=== PATIENT | male | born 1945 | race Caucasian/White ===

== ENCOUNTER 2016-05-21 09:43 | Outpatient (CLI) | payer MEDICARE | END 2016-05-21 09:44 | disposition home or self-care (01) | DX: R73.01 Impaired fasting glucose (principal) ==

== ENCOUNTER 2016-11-28 12:31 | Outpatient (CLI) | payer MEDICARE ==
--- NOTE | 2016-11-29 10:01 | CT Report ---
SINUS CT: 11/28/2016 HISTORY: Chronic rhinosinusitis and congestion. TECHNIQUE: Axial images of the sinuses with sagittal and coronal reconstructions. In accordance with CT protocol optimization, one or more of the following dose reduction techniques were utilized for this exam: automated exposure control, adjustment of mA and/or KV based on patient size, or use of iterative reconstructive technique. COMPARISON: 02/16/2011 FINDINGS: C1-2 relationship and temporomandibular joint alignments anatomic. Minimal lobulated membrane thickening inferior maxillary and left frontal sinuses. Remaining paranasal sinuses are clear. Nasal cavity normally aerated. Minimal nasal septal deviation to the left. Nasopharyngeal soft tissues not enlarged. Normally aerated mastoid air cells and middle ear cavities. Orbital structures symmetric and unremarkable. IMPRESSION: ESSENTIALLY NEGATIVE SINUS CT. JOB #: [id number] EXT JOB #: [id number] MTDSabina
== END 2016-11-28 12:32 | disposition home or self-care (01) ==
LOC: DI 12:31
PROVIDERS: ATTEND Family Medicine
DX: J32.9 Chronic sinusitis, unspecified (principal)
CPT/HCPCS: 70486

== ENCOUNTER 2017-01-01 08:41 | Day surgery (SDC) | payer MEDICARE ==
[2017-01-01] MEDS ORDERED: LACTATED RINGERS 1,000 ML IV ONE ×2 (09:30→09:56)
[2017-01-01] MEDS ORDERED: MIDAZOLAM 2 MG/2 ML VIAL IVP ONE (09:59)
[2017-01-01] MEDS ORDERED: GLUCAGON 1 MG/ML VIAL IM ONE (09:59)
[2017-01-01] MEDS ORDERED: fentaNYL 100 MCG/2 ML VIAL IVP ONE (09:59)
[2017-01-01 11:16] VITALS: BP 116/70
== END 2017-01-01 08:42 | disposition home or self-care (01) ==
LOC: SDS 08:41
PROVIDERS: ATTEND Surgery
PROC: 0DJD8ZZ Inspection of Lower Intestinal Tract, Via Natural or Artificial Opening Endoscopic (ICD-10-PCS; principal; 2017-01-01 09:45)
DX: Z12.11 Encounter for screening for malignant neoplasm of colon (principal); Z79.82 Long term (current) use of aspirin; Z87.891 Personal history of nicotine dependence
CPT/HCPCS: G0121; J7120

== ENCOUNTER 2017-01-24 12:29 | Day surgery (SDC) | payer MEDICARE ==
[~2017-01-24 12:29] MED LIST: ceFAZolin 2 GM/50 ML 2 GM/50 ML BAG IV ONE
[2017-01-24] MEDS ORDERED: LACTATED RINGERS 1,000 ML IV ONE ×3 (13:27→16:16)
[2017-01-24] MEDS ORDERED: ROPIVACAINE 0.5% PF 20 ML AMPULE EP ONE (14:00)
[2017-01-24] MEDS ORDERED: LIDOCAINE-MPF 2% 5 ML VIAL IM ONE (14:00)
[2017-01-24] MEDS ORDERED: DEXAMETHASONE 4 MG/ML VIAL IVP ONE (14:00)
[2017-01-24] MEDS ORDERED: fentaNYL 100 MCG/2 ML VIAL IVP ONE (14:00)
[2017-01-24] MEDS ORDERED: ACETAMINOPHEN 1,000 MG/100 ML 100 ML IV ONE ×2 (14:00→16:39)
[2017-01-24] MEDS ORDERED: MIDAZOLAM 2 MG/2 ML VIAL IVP ONE (14:00)
[2017-01-24] MEDS ORDERED: ONDANSETRON 4 MG/2 ML VIAL IVP ONE (14:00)
[2017-01-24] MEDS ORDERED: PROPOFOL 200 MG/20 ML VIAL IVP ONE (14:00)
[2017-01-24] MEDS: HYDROmorphone 1 MG/ML SYRINGE ONE ×2 (15:25→15:39)
[2017-01-24] MEDS ORDERED: KETOROLAC 15 MG/ML VIAL ONE (15:28)
--- NOTE | 2017-01-24 15:40 | OPERATIVE REPORT ---
Operative Report - General Procedure Date: 01/24/17 Planned Procedure: Open repair of Right Achilles tendon Pre-Op Diagnosis: Right Achilles Tendon Rupture Procedure Performed: OPen repair of right achilles tendon Post Op Diagnosis: same - Procedure Note Primary Surgeon: babita Secondary Surgeon: MERRITT Anesthesia Provider: ILEANA Anesthesia Technique: General LMA, Regional block Estimated Blood Loss (mL): 5 Complications: NONE
[2017-01-24] MEDS ORDERED: HYDROmorphone 1 MG/ML SYRINGE ONE ×2 (15:43→16:01)
[2017-01-24] MEDS ORDERED: oxyCOD/ACETAMIN 5 MG/325 MG TABLET PO ONE ×2 (16:24→19:17)
[2017-01-24 18:52] VITALS: BP 125/55
[2017-01-24] MEDS ORDERED: ONDANSETRON 4 MG/2 ML VIAL ONE (19:04)
[2017-01-24] MEDS ORDERED: TERAZOSIN 5 MG CAPSULE PO SCH (20:00)
[2017-01-24] MEDS: oxyCOD/ACETAMIN 5 MG/325 MG TABLET PO PRN (23:21)
[2017-01-25] MEDS ORDERED: ONDANSETRON 4 MG/2 ML VIAL IVP PRN (01:29)
[2017-01-25] MEDS: oxyCOD/ACETAMIN 5 MG/325 MG TABLET PO PRN (05:58)
--- NOTE | 2017-01-25 07:09 | OPERATIVE REPORT ---
DATE OF SURGERY: 01/24/2017 00:00:00 SURGEON: Tyler Dutta MD. COMPUTATIONAL THEORY SCIENTIST: None. ANESTHESIA: [place]. ANESTHESIA TYPE: General, LMA with preoperative popliteal block. PREOPERATIVE DIAGNOSIS: Right Achilles tendon rupture. POSTOPERATIVE DIAGNOSIS: Right Achilles tendon rupture. PROCEDURE PERFORMED: Open repair of right Achilles tendon. ESTIMATED BLOOD LOSS: 5 mL. TOURNIQUET TIME: 54 minutes at 350 mmHg. IMPLANTS: None. INDICATIONS FOR SURGERY: This man has had chronic Achilles tendinitis for about 3 months. He had a sudden strain and ruptured it a few days ago. DESCRIPTION OF PROCEDURE: The patient was brought into the operating room and placed under adequate general anesthesia. A popliteal block had been administered by the furniture duster preoperatively. The right lower extremity was prepped and sterilely draped in the usual fashion. A timeout was held to identify the patient, site and procedure. The patient was supine. He was placed into a figure 4 position, which was a little bit difficult to maintain. A posterior and slightly medial incision was created. The usual longitudinal incision line was prepared with a marking pen. However, only 2/3 of this incision were used. A central area about 1-1/2 inches was surrounded by 1-1/2 inch incision on either side. This allowed good access to the broken tendon ends. Skin was cut sharply. There was no particular bleeding. The sheath was encountered and divided longitudinally. In the upper wound, a fairly ragged end of the tendon was uncovered. There was some fatty degeneration, which was removed. The wound was irrigated. A core locking suture was created, although it tended to rest to the superficial part of the tendon. This was #2 FiberWire. It was possible to introduce the digit and feel an intact plantaris tendon. The distal wound was opened in a similar technique. It was possible to flex the ankle and deliver the proximal end of the distal segment up into the wound. Again, this was degenerated in several areas, which was removed as much as possible. Some of the tendon end was freshened with a scalpel. This was also done proximally. The #2 FiberWire suture was placed in a similar locking technique. Consideration was given as to which way to go to tie the sutures. It was fairly easy to see that extreme plantar flexion of the ankle brought the proximal end of the distal tendon up almost to the proximal wound. It was not possible to deliver the distal end of the proximal segment down as low as the lower incision. Therefore, decision was easily made to pass the limbs of the suture from the distal segment up through the tunnel of intact sheath to the proximal wound. The knee was flexed and the ankle was flexed and the sutures were tied. Corresponding suture tails from each suture were then tied together under some tension. The repair was checked with the ankle being flexed and extended as far as neutral. The proximal tendon could be seen flowing freely back and forth and the tendon repair area was really not seen, as it was truly in the tunnel. Same was true distally. The wound was irrigated throughout with normal saline. The wound was irrigated at the end with normal saline. The sheath was reapproximated with 3-0 PDS simple interrupted sutures. The outer wound was closed with some 3-0 PDS subcutaneous sutures. The skin was closed with a running 3-0 Prolene subcuticular stitch reinforced with Steri-Strips. The distal wound was treated in the same way. A bulky bandage was then placed on the foot, ankle and leg. The patient was then awakened, extubated and taken to the recovery room in good condition having tolerated the procedure well. POSTOPERATIVE PLAN. Discharge to home Follow-up in 5-6 days for dressing change -- try to maintain steri-strips in place, replace if necessary. Place into same type of soft bulky dressing. 3-4 rolls of 6 inch cast padding followed by 4-6 inch COBAN to stabilize. Encourage to davila very gentle active ankle extension motion. Does not have to reach neutral. Patient to continue [id number] with crutches or walker Follow-up with me in 10-12 days for suture removal and possible advance in activity. JOB #: [id number] EXT JOB #:[id number] RAUDEL
[2017-01-25] MEDS ORDERED: SODIUM CHLORIDE FLUSH 0.9% 10 ML SYRINGE IVP ONE (09:47)
== END 2017-01-25 11:15 | disposition home or self-care (01) ==
LOC: SDS 12:29 → OBS 15:15 → SDS 01-25 11:15
PROVIDERS: ATTEND Orthopaedic Surgery
PROC: 0LQN0ZZ Repair Right Lower Leg Tendon, Open Approach (ICD-10-PCS; principal; 2017-01-25)
DX: S86.011A Strain of right Achilles tendon, initial encounter (principal)
CPT/HCPCS: 27650; A9270; J0131; J0690; J1170; J7120

== ENCOUNTER 2017-03-28 12:35 | Outpatient (CLI) | payer MEDICARE ==
--- NOTE | 2017-03-28 15:26 | MRI Preliminary Report ---
Exam: MRI ANKLE RT W/O IMPRESSION: 1. Deep partial-thickness intrasubstance tear of the Achilles tendon at the surgical site. This invol ves a region measuring 2.5 cm in length. 2. Sequelae of old sprains of the lateral ligamentous structures. 3. Minimal tibiotalar and subtalar joint effusions. 4. Mild to moderate degenerative changes in the midfoot. 5. Mild plantar fasciopathy. [facility] MUSCULOSKELETAL RADIOLOGY SECTION SITE ID: [id number]
--- NOTE | 2017-03-28 17:41 | MRI Report ---
EXAM: RIGHT ANKLE/HINDFOOT MRI WITHOUT CONTRAST EXAM DATE: 03/28/2017 01:39 PM. CLINICAL HISTORY: Ankle pain chronic for years with Achilles tendon surgery 9 weeks ago. COMPARISON: MRI 01/04/2012 and radiographs 12/12/2016. TECHNIQUE: Multiplanar, multisequence T1-weighted and fluid-sensitive sequences of the ankle/hindfoot without contrast. Other: None. FINDINGS: Bones: No fracture or bone lesion. Mild bone marrow edema and osteophytes in the mid foot, most promi nent at the second and third tarsometatarsal joints. Os trigonum noted with mild bone marrow edema in the ossific fragment and to a lesser extent adjacent talus. Articular Cartilage: Diffuse shallow partial-thickness loss at the tibiotalar joint. Deep partial to full-thickness cartilage loss in the midfoot, most prominent at the second and third tarsometatarsal joints. Ligaments: Mild thickening at the intact anterior and posterior tibiofibular, talofibular, and calcan eofibular ligaments. The deep and superficial deltoid and spring ligaments are intact. Anterior Tendons: The tibialis anterior, extensor hallucis longus, and extensor digitorum longus tend ons are unremarkable. Medial Tendons: The tibialis posterior, flexor digitorum longus, and flexor hallucis longus tendons a re unremarkable. Trace excess fluid in the tendon sheaths. Lateral Tendons: Peroneus longus tendon is normal in morphology. Mildly flattened appearance of the P roteus brevis tendon at the fibular tip. No gross fluid-filled tear. Trace excess fluid in the tendon sheath. Achilles Tendon: Foci of susceptibility artifact present in the proximal aspect of the tendon. Severe tendon thickening present at this site. Heterogeneous fluid present in the central aspect of the ten don fibers at this site involving a region measuring 1.1 x 1.5 x 2.5 cm. This is located 6 cm proxima l to the insertion. Musculature: No fatty atrophy. Minimal edema partially visualized in the gastrocnemius muscles. Other: Mental tibiotalar and subtalar joint effusions. The contents of the sinus tarsi and tarsal andrade fatimah are unremarkable. Mild thickening at the central band of the plantar fascia. Mild subcutaneous ed sherif over the medial and lateral aspects of the hindfoot. IMPRESSION: 1. Deep partial-thickness intrasubstance tear of the Achilles tendon at the surgical site. This invol ves a region measuring 2.5 cm in length. 2. Sequelae of old sprains at the lateral ligamentous structures. 3. Minimal tibiotalar and subtalar joint effusions. 4. Mild to moderate degenerative changes in the midfoot. 5. Mild plantar fasciopathy. [facility] MUSCULOSKELETAL RADIOLOGY SECTION Referring Provider Line: [phone] SITE ID: [id number]
== END 2017-03-28 12:36 | disposition home or self-care (01) ==
LOC: DI 12:35
PROVIDERS: ATTEND Orthopaedic Surgery
DX: Z48.89 Encounter for other specified surgical aftercare (principal); S86.011A Strain of right Achilles tendon, initial encounter; M25.471 Effusion, right ankle; M19.071 Primary osteoarthritis, right ankle and foot

== ENCOUNTER 2018-04-30 09:27 | Outpatient (CLI) | payer MEDICARE ==
[2018-04-30 12:56] LABS: BASOPHILS % (AUTO) 0.7 %; EOSINOPHILS # (AUTO) 0.1 10^3/uL (0.0-0.7); EOSINOPHILS % (AUTO) 1.8 %; HGB - HEMOGLOBIN 14.7 g/dL (14.0-18.0); LYMPHOCYTES # (AUTO) 1.2 10^3/uL (1.5-3.5); LYMPHOCYTES % (AUTO) 32.8 %; MEAN CORPUSCULAR HEMOGLOBIN 30.3 pg (27.0-31.0); MEAN CORPUSCULAR HGB CONC 35.3 g/dL (32.0-36.0); MEAN PLATELET VOLUME 8.9 fL (7.4-11.4); MONOCYTES # (AUTO) 0.3 10^3/uL (0.0-1.0); MONOCYTES % (AUTO) 8.7 %; PLT - PLATELET COUNT 215 10^3/uL (130-450); RED BLOOD COUNT 4.85 10^6/uL (4.70-6.10); RED CELL DISTRIBUTION WIDTH 13.8 % (12.0-15.0); WHITE BLOOD COUNT 3.5 x10^3/uL (4.8-10.8)
[2018-04-30 13:22] LABS: THYROID STIMULATING HORMONE 2.43 uIU/mL (0.34-5.60)
[2018-04-30 13:46] LABS: ALBUMIN/GLOBULIN RATIO 1.8 (1.0-2.2); ALKALINE PHOSPHATASE 61 IU/L (42-121); ALT ALANINE AMINOTRANSFERASE 27 IU/L (10-60); AST ASPARTATE AMINOTRANSFERASE 17 IU/L (10-42); BUN - BLOOD UREA NITROGEN 15 mg/dL (6-20); CALCIUM 9.1 mg/dL (8.5-10.3); CARBON DIOXIDE - CO2 25 mmol/L (21-32); CHLORIDE 104 mmol/L (101-111); CHOLESTEROL 133 mg/dL; CREATININE 0.7 mg/dL (0.6-1.2); GFR - MDRD 111 (>89); GLUCOSE 95 mg/dL (70-100); HDL CHOLESTEROL 44 mg/dL; LDL CHOLESTEROL,CALCULATED 70 mg/dL; LDL/HDL RATIO 1.6 (<3.6); SODIUM 138 mmol/L (135-145); TOTAL PROTEIN 6.2 g/dL (6.7-8.2); VLDL CHOLESTEROL 19 mg/dL
== END 2018-04-30 09:28 | disposition home or self-care (01) ==
LOC: LAB.WCP 09:27
PROVIDERS: ATTEND Family Medicine
DX: R41.3 Other amnesia (principal); E78.5 Hyperlipidemia, unspecified; R73.01 Impaired fasting glucose
CPT/HCPCS: 36415; 80053; 80061; 82607; 83721; 83921; 84443; 85025

== ENCOUNTER 2019-05-27 08:56 | Outpatient (CLI) | payer MEDICARE ==
[2019-05-27 12:11] LABS: BASOPHILS % (AUTO) 0.5 %; HGB - HEMOGLOBIN 14.7 g/dL (14.0-18.0); LYMPHOCYTES # (AUTO) 1.3 10^3/uL (1.5-3.5); MEAN CORPUSCULAR HEMOGLOBIN 28.9 pg (27.0-31.0); MEAN CORPUSCULAR HGB CONC 32.6 g/dL (32.0-36.0); MEAN CORPUSCULAR VOLUME 88.8 fL (80.0-94.0); MEAN PLATELET VOLUME 11.4 fL (7.4-11.4); MONOCYTES # (AUTO) 0.4 10^3/uL (0.0-1.0); MONOCYTES % (AUTO) 9.5 %; NEUTROPHILS # (AUTO) 2.1 10^3/uL (1.5-6.6); NEUTROPHILS % (AUTO) 54.7 %; PLT - PLATELET COUNT 231 10^3/uL (130-450); RED BLOOD COUNT 5.08 10^6/uL (4.70-6.10); RED CELL DISTRIBUTION WIDTH 13.5 % (12.0-15.0); WHITE BLOOD COUNT 3.9 x10^3/uL (4.8-10.8)
[2019-05-27 12:50] LABS: ALBUMIN 3.9 g/dL (3.2-5.5); ALBUMIN/GLOBULIN RATIO 1.6 (1.0-2.2); ALKALINE PHOSPHATASE 49 IU/L (42-121); ALT ALANINE AMINOTRANSFERASE 19 IU/L (10-60); AST ASPARTATE AMINOTRANSFERASE 15 IU/L (10-42); BILIRUBIN,TOTAL 1.1 mg/dL (0.2-1.0); BUN - BLOOD UREA NITROGEN 17 mg/dL (6-20); CALCIUM 8.9 mg/dL (8.5-10.3); CARBON DIOXIDE - CO2 25 mmol/L (21-32); CHLORIDE 109 mmol/L (101-111); CHOL/HDL RATIO 3.7 (<5.0); CHOLESTEROL 158 mg/dL; CREATININE 0.8 mg/dL (0.6-1.2); GLUCOSE 98 mg/dL (70-100); HDL CHOLESTEROL 43 mg/dL; LDL CHOLESTEROL,CALCULATED 97 mg/dL; LDL/HDL RATIO 2.3 (<3.6); SODIUM 139 mmol/L (135-145); TOTAL PROTEIN 6.4 g/dL (6.7-8.2); VLDL CHOLESTEROL 18 mg/dL
== END 2019-05-27 23:59 | disposition home or self-care (01) ==
LOC: LAB.WCP 08:56
PROVIDERS: ATTEND Family Medicine
DX: E78.5 Hyperlipidemia, unspecified (principal)
CPT/HCPCS: 36415; 80053; 80061; 83721; 84443; 85025

== ENCOUNTER 2020-04-11 08:00 | Outpatient (CLI) | payer MEDICARE ==
[2020-04-11 12:03] LABS: BASOPHILS % (AUTO) 0.5 %; EOSINOPHILS # (AUTO) 0.1 10^3/uL (0.0-0.7); EOSINOPHILS % (AUTO) 1.3 %; HGB - HEMOGLOBIN 14.5 g/dL (14.0-18.0); LYMPHOCYTES # (AUTO) 1.2 10^3/uL (1.5-3.5); LYMPHOCYTES % (AUTO) 30.9 %; MEAN CORPUSCULAR HEMOGLOBIN 29.4 pg (27.0-31.0); MEAN CORPUSCULAR HGB CONC 32.5 g/dL (32.0-36.0); MEAN CORPUSCULAR VOLUME 90.3 fL (80.0-94.0); MEAN PLATELET VOLUME 10.7 fL (7.4-11.4); MONOCYTES # (AUTO) 0.3 10^3/uL (0.0-1.0); MONOCYTES % (AUTO) 8.4 %; NEUTROPHILS # (AUTO) 2.2 10^3/uL (1.5-6.6); NEUTROPHILS % (AUTO) 58.6 %; PLT - PLATELET COUNT 255 10^3/uL (130-450); RED BLOOD COUNT 4.94 10^6/uL (4.70-6.10); WHITE BLOOD COUNT 3.8 x10^3/uL (4.8-10.8)
[2020-04-11 12:35] LABS: ALBUMIN/GLOBULIN RATIO 1.6 (1.0-2.2); ALKALINE PHOSPHATASE 51 IU/L (42-121); ALT ALANINE AMINOTRANSFERASE 20 IU/L (10-60); AST ASPARTATE AMINOTRANSFERASE 14 IU/L (10-42); BILIRUBIN,TOTAL 1.1 mg/dL (0.2-1.0); BUN - BLOOD UREA NITROGEN 18 mg/dL (6-20); CALCIUM 9.3 mg/dL (8.5-10.3); CARBON DIOXIDE - CO2 28 mmol/L (21-32); CHLORIDE 104 mmol/L (101-111); CHOL/HDL RATIO 2.8 (<5.0); CHOLESTEROL 155 mg/dL; CREATININE 0.8 mg/dL (0.6-1.2); GLUCOSE 95 mg/dL (70-100); HDL CHOLESTEROL 55 mg/dL; LDL CHOLESTEROL,CALCULATED 89 mg/dL; LDL/HDL RATIO 1.6 (<3.6); TOTAL PROTEIN 6.5 g/dL (6.7-8.2); VLDL CHOLESTEROL 11 mg/dL
== END 2020-04-11 23:59 | disposition home or self-care (01) ==
LOC: LAB.WCP 08:00
PROVIDERS: ATTEND Internal Medicine
DX: E78.5 Hyperlipidemia, unspecified (principal); R73.9 Hyperglycemia, unspecified; Z12.5 Encounter for screening for malignant neoplasm of prostate
CPT/HCPCS: 36415; 80053; 80061; 83036; 84443; 85025; G0103; 83721; 84153

== ENCOUNTER 2020-05-09 16:32 | Outpatient (CLI) | payer MEDICARE ==
--- NOTE | 2020-05-09 17:29 | MRI Report ---
PROCEDURE: Lumbar Spine W/O INDICATIONS: LUMBAR SPINAL STENOSIS TECHNIQUE: Noncontrast sagittal T1 spin echo and T2 fast echo, coronal T2, sagittal STIR, axial T1 and T2 fast s pin echo through the lumbar spine. COMPARISON: None. FINDINGS: Image quality: Excellent. Alignment and Curvature: No plain films are available for comparison. Thus, for numbering purposes, 5 lumbar type vertebral bodies will be presumed for the current report. This should be confirmed with plain film correlation prior to any lumbar spinal intervention. There is loss of normal lumbar lordo sis. There is mild kyphosis at L2. Mild grade 1 retrolisthesis of L2 on L3 and L3 on L4. Mild grade 1 anterolisthesis of L4 on L5. Mild diffuse leftward curvature of the lower lumbar spine. Bone Marrow: Marrow is of normal overall signal. No acute vertebral body compression fractures. Mi ld reactive signal within the end plates adjacent to the T12-L1, L1-L2, L2-L3, L3-L4, and L4-L5 inter vertebral discs. Spinal Cord: Conus medullaris terminates at the L1-L2 disc space level. Visualized cord demonstrate s normal signal and size. Paraspinous Soft Tissues: No paravertebral masses. T12-L1: Mild disc desiccation. Mild facet and ligament flavum hypertrophy. No significant canal, nor foraminal stenosis. L1-L2: Mild disc desiccation and diffuse disc bulge. Mild facet and ligament flavum hypertrophy. M ild epidural lipomatosis. Mild canal stenosis. No foraminal stenosis. L2-L3: Moderate disc height loss and desiccation. Mild diffuse disc bulge. Mild facet and ligament flavum hypertrophy. Mild epidural lipomatosis. Mild canal stenosis. Moderate right and mild left for aminal stenosis. L3-L4: Severe disc height loss and desiccation. Mild diffuse disc bulge. Mild facet and ligament fl avum hypertrophy. Mild epidural lipomatosis. Mild canal stenosis. Moderate bilateral foraminal stenos is. L4-L5: Mild disc height loss and desiccation. Mild diffuse disc bulge. Moderate facet and ligament flavum hypertrophy. Mild epidural lipomatosis. Moderate canal stenosis. Moderate bilateral foraminal stenosis. L5-S1: Mild disc desiccation. Moderate bilateral facet hypertrophy. No significant canal stenosis. Moderate subarticular foraminal stenosis bilaterally. IMPRESSION: 1. Multilevel degenerative disc and facet disease, in addition to epidural lipomatosis and ligamentum flavum hypertrophy. 2. Multilevel canal stenoses, worst at L4-L5 where there is moderate canal stenosis. 3. Multilevel foraminal stenoses, worst at L2-L3, L3-L4, L4-L5, and L5-S1, where there are moderate f oraminal stenoses present. Reviewed by: Galileo Zuniga MD on 05/09/2020 4:27 PM [place] Approved by: Galileo Zuniga MD on 05/09/2020 4:27 PM [place] Station ID: [id number]
== END 2020-05-09 16:33 | disposition home or self-care (01) ==
LOC: DI 16:32
PROVIDERS: ATTEND Internal Medicine
DX: M51.36 Other intervertebral disc degeneration, lumbar region (principal); M48.061 Spinal stenosis, lumbar region without neurogenic claudication; M51.37 Other intervertebral disc degeneration, lumbosacral region; M47.817 Spondylosis without myelopathy or radiculopathy, lumbosacral region; M48.07 Spinal stenosis, lumbosacral region; M43.16 Spondylolisthesis, lumbar region

== ENCOUNTER 2020-07-14 15:10 | Outpatient (CLI) | payer MEDICARE ==
--- NOTE | 2020-07-14 17:07 | XRAY Report ---
PROCEDURE: Knee 2 View BILAT INDICATIONS: OSTEOARTHRITIS, KNEES, BILATERAL TECHNIQUE: 420 views of the bilateral knee(s) were acquired. COMPARISON: None. FINDINGS: Bones: No fractures or dislocations but there is asymmetric knee joint osteoarthritis that is modera tely severe to severe on the left at the medial compartment but only mild to moderate on the right in the same area. The lateral compartment on the right is moderately abnormal with joint space narrowin g due to degenerative change. At the patellofemoral joint seen on the lateral view bilateral moderate ly severe osteoarthritis is present those compartments.. No suspicious bony lesions. Soft tissues: No joint effusion. No suspicious soft tissue calcifications. IMPRESSION: No trauma found. Asymmetric left greater than right knee joint osteoarthritis as noted. No effusion or loose body seen. Reviewed by: Hair Rodriguez MD on 07/14/2020 5:06 PM PDT Approved by: Hair Rodriguez MD on 07/14/2020 5:06 PM PDT Station ID: [id number]
== END 2020-07-14 15:11 | disposition home or self-care (01) ==
LOC: DI.N 15:10
PROVIDERS: ATTEND Internal Medicine
DX: M17.0 Bilateral primary osteoarthritis of knee (principal)

== ENCOUNTER 2021-05-03 08:34 | Outpatient (CLI) | payer MEDICARE ==
[2021-05-03 11:53] LABS: BASOPHILS % (AUTO) 0.6 %; EOSINOPHILS # (AUTO) 0.1 10^3/uL (0.0-0.7); EOSINOPHILS % (AUTO) 1.5 %; HCT - HEMATOCRIT 43.3 % (42.0-52.0); HGB - HEMOGLOBIN 14.7 g/dL (14.0-18.0); LYMPHOCYTES % (AUTO) 31.4 %; MEAN CORPUSCULAR HEMOGLOBIN 30.2 pg (27.0-31.0); MEAN CORPUSCULAR HGB CONC 33.9 g/dL (32.0-36.0); MEAN CORPUSCULAR VOLUME 88.9 fL (80.0-94.0); MEAN PLATELET VOLUME 10.9 fL (7.4-11.4); MONOCYTES # (AUTO) 0.4 10^3/uL (0.0-1.0); MONOCYTES % (AUTO) 10.8 %; NEUTROPHILS # (AUTO) 1.8 10^3/uL (1.5-6.6); NEUTROPHILS % (AUTO) 55.7 %; PLT - PLATELET COUNT 243 10^3/uL (130-450); RED BLOOD COUNT 4.87 10^6/uL (4.70-6.10); RED CELL DISTRIBUTION WIDTH 12.8 % (12.0-15.0); WHITE BLOOD COUNT 3.3 x10^3/uL (4.8-10.8)
[2021-05-03 12:52] LABS: ALBUMIN 4.1 g/dL (3.2-5.5); ALBUMIN/GLOBULIN RATIO 1.8 (1.0-2.2); ALKALINE PHOSPHATASE 51 IU/L (42-121); ALT ALANINE AMINOTRANSFERASE 16 IU/L (10-60); AST ASPARTATE AMINOTRANSFERASE 16 IU/L (10-42); BILIRUBIN,TOTAL 1.2 mg/dL (0.2-1.0); BUN - BLOOD UREA NITROGEN 23 mg/dL (6-20); CALCIUM 9.3 mg/dL (8.5-10.3); CARBON DIOXIDE - CO2 27 mmol/L (21-32); CHLORIDE 105 mmol/L (101-111); CHOL/HDL RATIO 2.9 (<5.0); CHOLESTEROL 140 mg/dL; CREATININE 0.8 mg/dL (0.6-1.2); GFR - MDRD 94 (>89); GLUCOSE 97 mg/dL (70-100); HDL CHOLESTEROL 49 mg/dL; LDL CHOLESTEROL,CALCULATED 80 mg/dL; LDL/HDL RATIO 1.6 (<3.6); SODIUM 140 mmol/L (135-145); TOTAL PROTEIN 6.4 g/dL (6.7-8.2); TRIGLYCERIDES 57 mg/dL; VLDL CHOLESTEROL 11 mg/dL
[2021-05-03 13:06] LABS: THYROID STIMULATING HORMONE 2.3 uIU/mL (0.34-5.60)
== END 2021-05-03 08:35 | disposition home or self-care (01) ==
LOC: LAB.N 08:34
PROVIDERS: ATTEND Internal Medicine
DX: E78.5 Hyperlipidemia, unspecified (principal); N40.1 Benign prostatic hyperplasia with lower urinary tract symptoms
CPT/HCPCS: 36415; 80053; 80061; 83721; 84153; 84443; 85025

== ENCOUNTER 2021-10-02 10:33 | Emergency (ER) | payer MEDICARE ==
[2021-10-02 10:43] VITALS: BP 150/52
--- NOTE | 2021-10-02 11:02 | ED Physician Documentation ---
PD HPI UPPER EXT INJURY - Stated complaint Stated Complaint: LT THUMB LAC - Chief complaint Chief Complaint: Laceration - History obtained from History obtained from: Patient - History of Present Illness Location: Left, Finger (thumb pad) Type of injury: Laceration (he states thumb lac from table saw when the wood bucked.) Where injury occurred: Home Timing - onset: Today (shortly HELICOPTER PILOT, injury occurred and he rinsed under water, applied towel and came here.) Timing - details: Abrupt onset, Still present Worsened by: Moving, Palpating Associated symptoms: Numbness (partion of skin missing, so not sensation just there.). No: Weakness (no injury to the IP joint.) Similar symptoms before: Has not had sx before Review of Systems Skin: reports: Laceration (s) Neurologic: denies: Generalized weakness, Focal weakness, Near syncope PD PAST MEDICAL HISTORY - Past Medical History Cardiovascular: High cholesterol Respiratory: None Endocrine/Autoimmune: None GI: None : Benign prostate hypertrophy HEENT: Chronic vision loss Psych: None Musculoskeletal: Osteoarthritis Derm: None - Past Surgical History Past Surgical History: Yes General: Other Ortho: Hip replacement, Other HEENT: Cataracts, Other - Present Medications Home Medications: Ambulatory Orders Medication Instructions Recorded Confirmed Aspirin [Aspir 81] 81 mg PO DAILY 11/03/13 01/22/17 Terazosin [Hytrin] 10 mg PO DAILY 11/03/13 01/22/17 Cholecalciferol (Vitamin D3) 2,000 unit PO DAILY 01/22/17 01/22/17 [Vitamin D] Lactobacillus Acidophilus 1 each PO DAILY 01/22/17 01/22/17 [Probiotic Acidophilus] Multivitamin [Multiple Vitamins] 1 each PO DAILY 01/22/17 01/22/17 Naproxen Sodium [Aleve] 2 tab PO DAILY PM 01/22/17 01/22/17 Ubidecarenone/Vit E Acet [Co Q-10 1 cap PO DAILY 01/22/17 01/22/17 100 mg Softgel] HYDROcod/ACETAM 5/325 [[place] 5/325] 1 ea PO Q6H PRN #15 tablet 10/02/21 - Allergies Allergies/Adverse Reactions: Allergies Allergy/AdvReac Type Severity Reaction Status Date / Time No Known Drug Allergies Allergy Verified 10/02/21 10:43 - Social History Does the pt smoke?: No Smoking Status: Never smoker Does the pt drink ETOH?: Yes Does the pt have substance abuse?: No - Immunizations Immunizations are current?: No Immunizations: TDAP >10years/unknown PD ED PE NORMAL - Vitals Vital signs reviewed: Yes - General General: Alert and oriented X 3, No acute distress, Well developed/nourished - Derm Derm: Normal color, Warm and dry - Extremities Extremities: Other (1x2 cm avulsion of skin with down to fatty tissue just in central area. Does not expose bone. Just at distal aspect of nailbed and then toward radial side fat pad. No FB. ) - Neuro Neuro: Alert and oriented X 3, No motor deficit, Normal speech Results - Vitals Vitals: Vital Signs - 24 hr 10/02/21 10:40 Temperature 36.4 C L Heart Rate 79 Respiratory 16 Rate Blood Pressure 150/52 H O2 Saturation 98 Oxygen O2 Source Room air PD MEDICAL DECISION MAKING - ED course Complexity details: considered differential (avulsion of skin. Not suturable. Might need some closure if does not fully fill in. ), d/w patient Departure - Departure Disposition: 01 Home, Self Care Clinical Impression: Avulsion of skin of thumb Qualifiers: Encounter type: initial encounter Laterality: left Qualified Code(s): S61.002A - Unspecified open wound of left thumb without damage to nail, initial encounter Condition: Stable Record reviewed to determine appropriate education?: Yes Instructions: ED Avulsion Dermal Follow-Up: Bob Polo MD [Primary Care Provider] - Prescriptions: HYDROcod/ACETAM 5/325 [[place] 5/325] 1 ea PO Q6H PRN #15 tablet PRN Reason: Pain Comments: Clean the wound gently with soap and water and apply some ointment once or twice daily. The skin should heal in from the edges slowly over the next week or 2. To see how well it closes in and whether it will need any assistance in healing such as a graft or such. Typically wounds up to 1 x 1 cm can heal and well. This is slightly bigger than that. Typically there would not be any intervention done right away until 1 sees how well he heals then. Follow-up with your primary care in about 1-1/2 weeks. See if they would need to refer you to a hand specialist or such. Tylenol ibuprofen as needed for pains. Recheck if signs of infection. Add hydrocodone if needed for worse pain. Your last tetanus shot on record here was October 2013 so you are still good for another couple of years. I sent your prescription to the [facility] pharmacy. I am prescribing a short course of narcotic pain medication for you. These are potentially dangerous and addictive medications that should be used carefully. These medications may constipate you. Take an [id number]-ocr-[id number] stool softener such as docusate twice daily with plenty of water while taking these medications. If you go 24 hours without a bowel movement, take [id number] MiraLAX, per package instructions. Do not drink or drive while taking these medications. If you received narcotic or sedating medications while in the emergency department do not drive for 24 hours. Store this medication in a safe, secure place and out of reach of children. It is a violation of federal law to give or sell this medication to another person or to use in a manner other than prescribed. The ED will not refill narcotic prescriptions, including prescriptions lost or stolen. You can dispose of unwanted medications at the [facility] office or at several pharmacies such as [facility]. Discharge Date/Time: 10/02/21 11:33
[2021-10-02] MEDS ORDERED: BACITRACIN ZINC OINT 1 PACKET TOP STA (11:10)
[2021-10-02] MEDS ORDERED: HYDROcod/ACETAM 5/325 MG TABLET PO STA (11:11)
[2021-10-02] MEDS ORDERED: NAPROXEN 250 MG TABLET PO STA (11:11)
--- OUTSIDE RECORDS SUMMARY | 2021-10-02 11:19 | EXTERNAL MEDICAL SUMMARY RPT | Continuity of Care Document ---
:1945 Author Organization [facility] [address] [place] [address] Phone Allergies No information. Encounters No information. Functional Status No information. Immunizations No information. Medications date description facility [id number] celecoxib 200 MG Oral Capsule [facility] [id number] tramadol hydrochloride 50 MG Oral Tabl et [facility] [id number] Trazodone Hydrochloride 50 MG Oral Tab let [facility] Problems No information. Procedures date description facility [id number] Diagnosis [facility] [id number] Finding [facility] [id number] General Physician [facility] Results/Labs test date author facility value unit interpret ation Result panel 1 (unknown) (no (unknown) (unknown) (no value) (units (unk nown) date) unknown) (unknown) (no (unknown) (unknown) (no value) (units (unk nown) date) unknown) (unknown) (no (unknown) (unknown) [place] [address] (unit s (unknown) date) unknown) (unknown) (no (unknown) (unknown) Draft (units (unkno wn) date) unknown) (unknown) (no (unknown) (unknown) Pain Visit (units (unk nown) date) unknown) (unknown) (no (unknown) (unknown) [facility] (unit s (unknown) date) Management unknown) (unknown) (no (unknown) (unknown) (no value) (units (unk nown) date) unknown) (unknown) (no (unknown) (unknown) [id number] (units (unkno wn) date) unknown) (unknown) (no (unknown) (unknown) 06/22/20 [History (units (unknown) date) Confirmed 08/21/21] unknown) (unknown) (no (unknown) (unknown) 08/21/21 (units (unkno wn) date) unknown) (unknown) (no (unknown) (unknown) 08/21/21] (units (unkn own) date) unknown) (unknown) (no (unknown) (unknown) Accompanied by: (units (unknown) date) Self / Same As unknown) Patient (unknown) (no (unknown) (unknown) Age/Sex: 76 / M (units (unknown) date) Date of Service: unknown) (unknown) (no (unknown) (unknown) Allergies (units (unkn own) date) unknown) (unknown) (no (unknown) (unknown) Attending Dr: (units ( unknown) date) Aneesh Romero D.O. 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 unknown) (unknown) (no (unknown) (unknown) Documented By: (units (unknown) date) Aneesh Romero D.O. 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 (unknown) (no (unknown) (unknown) H/O Achilles tendon (unit s (unknown) date) repair unknown) (unknown) (no (unknown) (unknown) HERE FOR BILATERAL (units (unknown) date) KNEE DUROLANE unknown) (unknown) (no (unknown) (unknown) History of (units (unk nown) date) arthroplasty of unknown) right shoulder (unknown) (no (unknown) (unknown) History of right (units (unknown) date) hip replacement unknown) (unknown) (no (unknown) (unknown) Intake (units (unkno wn) date) unknown) (unknown) (no (unknown) (unknown) Intake Clinical (units (unknown) date) Staff unknown) (unknown) (no (unknown) (unknown) Intake Note: (units (u nknown) date) unknown) (unknown) (no (unknown) (unknown) Intake performed (units (unknown) date) by: Michelle Lawson unknown) (unknown) (no (unknown) (unknown) Left humeral (units (u nknown) date) fracture unknown) (unknown) (no (unknown) (unknown) Loc: PAIN (units (unkn own) date) unknown) (unknown) (no (unknown) (unknown) Medical History (units (unknown) date) (Reviewed 06/05/21 @ unknown) 12:38 by Aneesh Romero DO) (unknown) (no (unknown) (unknown) Medications (units (un known) date) unknown) (unknown) (no (unknown) (unknown) No Known Drug (units ( unknown) date) Allergies Allergy unknown) (Verified 08/21/21 14:02) (unknown) (no (unknown) (unknown) PFSH (units (unkno wn) date) unknown) (unknown) (no (unknown) (unknown) Patient: (units (unkno wn) date) Estrada Staley unknown) MR#: [id number] (unknown) (no (unknown) (unknown) Reason For Visit (units (unknown) date) unknown) (unknown) (no (unknown) (unknown) Signed By: (units (unk nown) date) unknown) (unknown) (no (unknown) (unknown) Smoking Status: (units (unknown) date) Former smoker unknown) (unknown) (no (unknown) (unknown) Spondylolisthesis (units (unknown) date) at L4-L5 level unknown) (unknown) (no (unknown) (unknown) Surgical History (units (unknown) date) (Updated 06/05/21 @ unknown) 12:39 by Aneesh Romero DO) (unknown) (no (unknown) (unknown) This note may have (units (unknown) date) been all or unknown) partially generated using voice recognition (unknown) (no (unknown) (unknown) Tobacco + Substance (unit s (unknown) date) Use unknown) (unknown) (no (unknown) (unknown) Tobacco Status (units (unknown) date) unknown) (unknown) (no (unknown) (unknown) Visit Reasons: (units (unknown) date) Bilateral Durolane, unknown) DUROLANE INJECTIONS KNEE'S (unknown) (no (unknown) (unknown) acetaminophen 500 (units (unknown) date) mg tablet (Tylenol unknown) Extra Strength) 1,000 mg PO Q6H PRN (unknown) (no (unknown) (unknown) aspirin 81 mg (units ( unknown) date) tablet,delayed unknown) release (Adult Low Dose Aspirin) 81 mg PO DAILY (unknown) (no (unknown) (unknown) atorvastatin 10 mg (units (unknown) date) tablet 10 mg PO unknown) DAILY 06/22/20 [History Confirmed 08/21/21] (unknown) (no (unknown) (unknown) celecoxib 200 mg (units (unknown) date) capsule (Celebrex) unknown) 200 mg PO DAILY #90 caps 10/31/20 [Rx (unknown) (no (unknown) (unknown) cholecalciferol (units (unknown) date) (vitamin D3) 50 mcg unknown) (2,000 unit) capsule 50 mcg PO DAILY (unknown) (no (unknown) (unknown) coenzyme Q10 75 mg (units (unknown) date) capsule (Ultra unknown) CoQ10) 75 mg PO DAILY 10/05/20 [History (unknown) (no (unknown) (unknown) have occurred. If (units (unknown) date) there are any unknown) questions, please contact the Medical Records (unknown) (no (unknown) (unknown) may occur. (units (unk nown) date) Occasional unknown) wrong-word or 'sound-alike' substitutions may have (unknown) (no (unknown) (unknown) occurred due to the (unit s (unknown) date) inherent limitations unknown) of voice recognition software. Please (unknown) (no (unknown) (unknown) omeprazole 20 mg (units (unknown) date) capsule,delayed unknown) release 20 mg PO DAILY 06/05/21 [History (unknown) (no (unknown) (unknown) read the note (units ( unknown) date) carefully and unknown) recognize, using context, where these substitutions (unknown) (no (unknown) (unknown) software. Although (units (unknown) date) every effort is made unknown) to edit content, shelter monitor errors (unknown) (no (unknown) (unknown) tamsulosin 0.4 mg (units (unknown) date) capsule 0.4 mg PO unknown) DAILY 06/22/20 [History Confirmed 08/21/21] (unknown) (no (unknown) (unknown) tramadol 50 mg (units (unknown) date) tablet 50 mg PO unknown) BEDTIME PRN pain #30 tabs 08/04/21 [Rx Confirmed Result panel 2 (unknown) (no (unknown) (unknown) (no value) (units (unk nown) date) unknown) (unknown) (no (unknown) (unknown) (no value) (units (unk nown) date) unknown) (unknown) (no (unknown) (unknown) (no value) (units (unk nown) date) unknown) (unknown) (no (unknown) (unknown) 08/21/21 (units (unkno wn) date) unknown) (unknown) (no (unknown) (unknown) 14:13 (units (unkno wn) date) unknown) (unknown) (no (unknown) (unknown) [place] [id number] (unit s (unknown) date) unknown) (unknown) (no (unknown) (unknown) Draft (units (unkno wn) date) unknown) (unknown) (no (unknown) (unknown) Pain Visit (units (unk nown) date) unknown) (unknown) (no (unknown) (unknown) [facility] (unit s (unknown) date) Management unknown) (unknown) (no (unknown) (unknown) (no value) (units (unk nown) date) unknown) (unknown) (no (unknown) (unknown) [id number] (units (unkno wn) date) unknown) (unknown) (no (unknown) (unknown) 06/22/20 [History (units (unknown) date) Confirmed 08/21/21] unknown) (unknown) (no (unknown) (unknown) 08/21/21 (units (unkno wn) date) unknown) (unknown) (no (unknown) (unknown) Accompanied by: (units (unknown) date) Self / Same As unknown) Patient (unknown) (no (unknown) (unknown) Age/Sex: 76 / M (units (unknown) date) Date of Service: unknown) (unknown) (no (unknown) (unknown) Allergies (units (unkn own) date) unknown) (unknown) (no (unknown) (unknown) Attending Dr: (units ( unknown) date) Aneesh Romero D.O. 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 unknown) (unknown) (no (unknown) (unknown) Documented By: (units (unknown) date) Aneesh Romero D.O. 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 (unknown) (no (unknown) (unknown) H/O Achilles tendon (unit s (unknown) date) repair unknown) (unknown) (no (unknown) (unknown) HERE FOR BILATERAL (units (unknown) date) KNEE DUROLANE unknown) (unknown) (no (unknown) (unknown) Height 6 ft 3 in (unit s (unknown) date) unknown) (unknown) (no (unknown) (unknown) History of (units (unk nown) date) arthroplasty of unknown) right shoulder (unknown) (no (unknown) (unknown) History of right (units (unknown) date) hip replacement unknown) (unknown) (no (unknown) (unknown) Intake (units (unkno wn) date) unknown) (unknown) (no (unknown) (unknown) Intake Clinical (units (unknown) date) Staff unknown) (unknown) (no (unknown) (unknown) Intake Note: (units (u nknown) date) unknown) (unknown) (no (unknown) (unknown) Intake performed (units (unknown) date) by: Michelle Lawson unknown) (unknown) (no (unknown) (unknown) Is patient in (units ( unknown) date) pain?: Yes (HERE FOR unknown) ILATERAL KNEE DUROLANE) Pain scale (1-10): 4 (unknown) (no (unknown) (unknown) Left humeral (units (u nknown) date) fracture unknown) (unknown) (no (unknown) (unknown) Loc: PAIN (units (unkn own) date) unknown) (unknown) (no (unknown) (unknown) Medical History (units (unknown) date) (Reviewed 06/05/21 @ unknown) 12:38 by Aneesh Romero DO) (unknown) (no (unknown) (unknown) Medications (units (un known) date) unknown) (unknown) (no (unknown) (unknown) No Known Drug (units ( unknown) date) Allergies Allergy unknown) (Verified 08/21/21 14:02) (unknown) (no (unknown) (unknown) Oxygen Delivery (units (unknown) date) Method room air unknown) (unknown) (no (unknown) (unknown) PFSH (units (unkno wn) date) unknown) (unknown) (no (unknown) (unknown) Pain Scale (units (unk nown) date) unknown) (unknown) (no (unknown) (unknown) Patient: (units (unkno wn) date) Huffine,Estrada C unknown) MR#: [id number] (unknown) (no (unknown) (unknown) Position Sitting (unit s (unknown) date) unknown) (unknown) (no (unknown) (unknown) Pulse 92 H (units ( unknown) date) unknown) (unknown) (no (unknown) (unknown) Pulse Oximetry (%) (units (unknown) date) 97 unknown) (unknown) (no (unknown) (unknown) Pulse Source (units (u nknown) date) Monitor unknown) (unknown) (no (unknown) (unknown) Reason For Visit (units (unknown) date) unknown) (unknown) (no (unknown) (unknown) Signed By: (units (unk nown) date) unknown) (unknown) (no (unknown) (unknown) Smoking Status: (units (unknown) date) Former smoker unknown) (unknown) (no (unknown) (unknown) Spondylolisthesis (units (unknown) date) at L4-L5 level unknown) (unknown) (no (unknown) (unknown) Surgical History (units (unknown) date) (Updated 06/05/21 @ unknown) 12:39 by Aneesh Roemro DO) (unknown) (no (unknown) (unknown) Temp 98.3 F (units (unknown) date) unknown) (unknown) (no (unknown) (unknown) Temp Source (units (un known) date) Temporal Artery Scan unknown) (unknown) (no (unknown) (unknown) This note may have (units (unknown) date) been all or unknown) partially generated using voice recognition (unknown) (no (unknown) (unknown) Tobacco + Substance (unit s (unknown) date) Use unknown) (unknown) (no (unknown) (unknown) Tobacco Status (units (unknown) date) unknown) (unknown) (no (unknown) (unknown) Visit Reasons: (units (unknown) date) Bilateral Durolane, unknown) DUROLANE INJECTIONS KNEE'S (unknown) (no (unknown) (unknown) Vitals (units (unkno wn) date) unknown) (unknown) (no (unknown) (unknown) Weight 250 lb (units (unknown) date) unknown) (unknown) (no (unknown) (unknown) acetaminophen 500 (units (unknown) date) mg tablet (Tylenol unknown) Extra Strength) 1,000 mg PO Q6H PRN (unknown) (no (unknown) (unknown) aspirin 81 mg (units ( unknown) date) tablet,delayed unknown) release (Adult Low Dose Aspirin) 81 mg PO DAILY (unknown) (no (unknown) (unknown) atorvastatin 10 mg (units (unknown) date) tablet 10 mg PO unknown) DAILY 06/22/20 [History Confirmed 08/21/21] (unknown) (no (unknown) (unknown) celecoxib 200 mg (units (unknown) date) capsule (Celebrex) unknown) 200 mg PO DAILY #90 caps 10/31/20 [Rx (unknown) (no (unknown) (unknown) cholecalciferol (units (unknown) date) (vitamin D3) 50 mcg unknown) (2,000 unit) capsule 50 mcg PO DAILY (unknown) (no (unknown) (unknown) coenzyme Q10 75 mg (units (unknown) date) capsule (Ultra unknown) CoQ10) 75 mg PO DAILY 10/05/20 [History (unknown) (no (unknown) (unknown) have occurred. If (units (unknown) date) there are any unknown) questions, please contact the Medical Records (unknown) (no (unknown) (unknown) may occur. (units (unk nown) date) Occasional unknown) wrong-word or 'sound-alike' substitutions may have (unknown) (no (unknown) (unknown) occurred due to the (unit s (unknown) date) inherent limitations unknown) of voice recognition software. Please (unknown) (no (unknown) (unknown) omeprazole 20 mg (units (unknown) date) capsule,delayed unknown) release 20 mg PO DAILY 06/05/21 [History (unknown) (no (unknown) (unknown) read the note (units ( unknown) date) carefully and unknown) recognize, using context, where these substitutions (unknown) (no (unknown) (unknown) software. Although (units (unknown) date) every effort is made unknown) to edit content, shelter monitor errors (unknown) (no (unknown) (unknown) tamsulosin 0.4 mg (units (unknown) date) capsule 0.4 mg PO unknown) DAILY 06/22/20 [History Confirmed 08/21/21] Result panel 3 (unknown) (no (unknown) (unknown) (no value) (units (unk nown) date) unknown) (unknown) (no (unknown) (unknown) Medications: (units (u nknown) date) unknown) (unknown) (no (unknown) (unknown) Orders: (units (unkno wn) date) unknown) (unknown) (no (unknown) (unknown) (no value) (units (unk nown) date) unknown) (unknown) (no (unknown) (unknown) (no value) (units (unk nown) date) unknown) (unknown) (no (unknown) (unknown) 08/21/21 (units (unkno wn) date) unknown) (unknown) (no (unknown) (unknown) 14:13 (units (unkno wn) date) unknown) (unknown) (no (unknown) (unknown) [place] [id number] (unit s (unknown) date) unknown) (unknown) (no (unknown) (unknown) Draft (units (unkno wn) date) unknown) (unknown) (no (unknown) (unknown) Pain Visit (units (unk nown) date) unknown) (unknown) (no (unknown) (unknown) [facility] (unit s (unknown) date) Management unknown) (unknown) (no (unknown) (unknown) (no value) (units (unk nown) date) unknown) (unknown) (no (unknown) (unknown) - Unilateral (units (u nknown) date) primary unknown) osteoarthritis, unspecified knee (unknown) (no (unknown) (unknown) [id number] (units (unkno wn) date) unknown) (unknown) (no (unknown) (unknown) 06/22/20 [History (units (unknown) date) Confirmed 01/18/21] unknown) (unknown) (no (unknown) (unknown) 08/21/21 (units (unkno wn) date) unknown) (unknown) (no (unknown) (unknown) Accompanied by: (units (unknown) date) Self / Same As unknown) Patient (unknown) (no (unknown) (unknown) Age/Sex: 76 / M (units (unknown) date) Date of Service: unknown) (unknown) (no (unknown) (unknown) Allergies (units (unkn own) date) unknown) (unknown) (no (unknown) (unknown) As oral consent, we (unit s (unknown) date) did review the risk unknown) to the above-stated procedure including (unknown) (no (unknown) (unknown) Assessment + Plan (units (unknown) date) unknown) (unknown) (no (unknown) (unknown) Attending Dr: (units ( unknown) date) Aneesh Romero D.O. unknown) (unknown) (no (unknown) (unknown) BMI 31.2 (units (un known) date) unknown) (unknown) (no (unknown) (unknown) BP 130/78 (units (u nknown) date) unknown) (unknown) (no (unknown) (unknown) Blood Pressure (units (unknown) date) Location Rt unknown) brachial (unknown) (no (unknown) (unknown) Confirmed 06/05/21] (unit s (unknown) date) unknown) (unknown) (no (unknown) (unknown) Confirmed 08/21/21] (unit s (unknown) date) unknown) (unknown) (no (unknown) (unknown) Confirmed 01/18/21] (unit s (unknown) date) unknown) (unknown) (no (unknown) (unknown) : 1945 (units (unknown) date) Acct:[id number] unknown) (unknown) (no (unknown) (unknown) 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 unknown) (unknown) (no (unknown) (unknown) Documented By: (units (unknown) date) Aneesh Romero D.O. 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, unspecified knee (unknown) (no (unknown) (unknown) Exp: 01/09/2024 (units (unknown) date) unknown) (unknown) (no (unknown) (unknown) Facet arthropathy, (units (unknown) date) lumbar unknown) (unknown) (no (unknown) (unknown) Family History (units (unknown) date) (Reviewed 06/05/21 @ unknown) 12:38 by Aneesh Romero DO) (unknown) (no (unknown) (unknown) Father TIA (units (u nknown) date) (transient ischemic unknown) attack) (unknown) (no (unknown) (unknown) 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 (unknown) (no (unknown) (unknown) H/O Achilles tendon (unit s (unknown) date) repair unknown) (unknown) (no (unknown) (unknown) HERE FOR BILATERAL (units (unknown) date) KNEE DUROLANE unknown) (unknown) (no (unknown) (unknown) Height 6 ft 3 in (unit s (unknown) date) unknown) (unknown) (no (unknown) (unknown) History of (units (unk nown) date) arthroplasty of unknown) right shoulder (unknown) (no (unknown) (unknown) History of right (units (unknown) date) hip replacement unknown) (unknown) (no (unknown) (unknown) Intake (units (unkno wn) date) unknown) (unknown) (no (unknown) (unknown) Intake Clinical (units (unknown) date) Staff unknown) (unknown) (no (unknown) (unknown) Intake Note: (units (u nknown) date) unknown) (unknown) (no (unknown) (unknown) Intake performed (units (unknown) date) by: Michelle Lawson unknown) (unknown) (no (unknown) (unknown) Interventions/Proc. (unit s (unknown) date) unknown) (unknown) (no (unknown) (unknown) Interventions: (units (unknown) date) unknown) (unknown) (no (unknown) (unknown) Is patient in (units ( unknown) date) pain?: Yes (HERE FOR unknown) ILATERAL KNEE DUROLANE) Pain scale (1-10): 4 (unknown) (no (unknown) (unknown) Left humeral (units (u nknown) date) fracture unknown) (unknown) (no (unknown) (unknown) Loc: PAIN (units (unkn own) date) unknown) (unknown) (no (unknown) (unknown) Lot: (units (un known) date) unknown) (unknown) (no (unknown) (unknown) Medical History (units (unknown) date) (Reviewed 06/05/21 @ unknown) 12:38 by Aneesh Romero DO) (unknown) (no (unknown) (unknown) Medications (units (un known) date) unknown) (unknown) (no (unknown) (unknown) New (units (unkno wn) date) unknown) (unknown) (no (unknown) (unknown) No Known Drug (units ( unknown) date) Allergies Allergy unknown) (Verified 08/21/21 14:02) (unknown) (no (unknown) (unknown) Orders (units (unkno wn) date) unknown) (unknown) (no (unknown) (unknown) Oxygen Delivery (units (unknown) date) Method room air unknown) (unknown) (no (unknown) (unknown) PFSH (units (unkno wn) date) unknown) (unknown) (no (unknown) (unknown) Pain Scale (units (unk nown) date) unknown) (unknown) (no (unknown) (unknown) Patient: (units (unkno wn) date) Estrada Staley unknown) MR#: [id number] (unknown) (no (unknown) (unknown) Position Sitting (unit s (unknown) date) unknown) (unknown) (no (unknown) (unknown) Pulse 92 H (units ( unknown) date) unknown) (unknown) (no (unknown) (unknown) Pulse Oximetry (%) (units (unknown) date) 97 unknown) (unknown) (no (unknown) (unknown) Pulse Source (units (u nknown) date) Monitor unknown) (unknown) (no (unknown) (unknown) Reason For Visit (units (unknown) date) unknown) (unknown) (no (unknown) (unknown) Refilled (units (unkno wn) date) unknown) (unknown) (no (unknown) (unknown) Signed By: (units (unk nown) date) unknown) (unknown) (no (unknown) (unknown) Smoking Status: (units (unknown) date) Former smoker unknown) (unknown) (no (unknown) (unknown) Spondylolisthesis (units (unknown) date) at L4-L5 level unknown) (unknown) (no (unknown) (unknown) Surgical History (units (unknown) date) (Updated 06/05/21 @ unknown) 12:39 by Aneesh Romero DO) (unknown) (no (unknown) (unknown) Temp 98.3 F (units (unknown) date) unknown) (unknown) (no (unknown) (unknown) Temp Source (units (un known) date) Temporal Artery Scan unknown) (unknown) (no (unknown) (unknown) The bilateral knee (units (unknown) date) was prepped in the unknown) superior anterior fashion with (unknown) (no (unknown) (unknown) The patient (units (un known) date) tolerated the unknown) procedure without signs or symptoms of complications (unknown) (no (unknown) (unknown) This note may have (units (unknown) date) been all or unknown) partially generated using voice recognition (unknown) (no (unknown) (unknown) Tobacco + Substance (unit s (unknown) date) Use unknown) (unknown) (no (unknown) (unknown) Tobacco Status (units (unknown) date) unknown) (unknown) (no (unknown) (unknown) Visit Reasons: (units (unknown) date) Bilateral Durolane, unknown) DUROLANE INJECTIONS KNEE'S (unknown) (no (unknown) (unknown) Vitals (units (unkno wn) date) unknown) (unknown) (no (unknown) (unknown) Weight 250 lb (units (unknown) date) unknown) (unknown) (no (unknown) (unknown) acetaminophen 500 (units (unknown) date) mg tablet (Tylenol unknown) Extra Strength) 1,000 mg PO Q6H PRN (unknown) (no (unknown) (unknown) aspirin 81 mg (units ( unknown) date) tablet,delayed unknown) release (Adult Low Dose Aspirin) 81 mg PO DAILY (unknown) (no (unknown) (unknown) atorvastatin 10 mg (units (unknown) date) tablet 10 mg PO unknown) DAILY 06/22/20 [History Confirmed 01/18/21] (unknown) (no (unknown) (unknown) atraumatically (units (unknown) date) introduced and unknown) advanced into the intra-articular space. After (unknown) (no (unknown) (unknown) but not limited to (units (unknown) date) bleeding, infection, unknown) allergic reaction, nerve injury, stroke, (unknown) (no (unknown) (unknown) celecoxib (units (unkn own) date) (Celebrex) 200 mg unknown) PO DAILY 90 caps 2RF (unknown) (no (unknown) (unknown) celecoxib 200 mg (units (unknown) date) capsule (Celebrex) unknown) 200 mg PO DAILY #90 caps 08/21/21 [Rx (unknown) (no (unknown) (unknown) cholecalciferol (units (unknown) date) (vitamin D3) 50 mcg unknown) (2,000 unit) capsule 50 mcg PO DAILY (unknown) (no (unknown) (unknown) coenzyme Q10 75 mg (units (unknown) date) capsule (Ultra unknown) CoQ10) 75 mg PO DAILY 10/05/20 [History (unknown) (no (unknown) (unknown) have occurred. If (units (unknown) date) there are any unknown) questions, please contact the Medical Records (unknown) (no (unknown) (unknown) hyaluronate sodium, (unit s (unknown) date) stabilized 60 mg (3 unknown) mL) intra-articular ONCE 3 mL 0RF (unknown) (no (unknown) (unknown) hyaluronate sodium, (units (unknown) date) stabilized 60 mg (3 unknown) mL) intra-articular ONCE 3 mL 0RF M17.10 (unknown) (no (unknown) (unknown) may occur. (units (unk nown) date) Occasional unknown) wrong-word or 'sound-alike' substitutions may have (unknown) (no (unknown) (unknown) negative aspiration (unit s (unknown) date) ampule of Duralane unknown) was administered without incident. (unknown) (no (unknown) (unknown) noted significant (units (unknown) date) relief prior to unknown) dismissal in excellent condition of their own (unknown) (no (unknown) (unknown) occurred due to the (unit s (unknown) date) inherent limitations unknown) of voice recognition software. Please (unknown) (no (unknown) (unknown) omeprazole 20 mg (units (unknown) date) capsule,delayed unknown) release 20 mg PO DAILY 06/05/21 [History (unknown) (no (unknown) (unknown) paralysis, and (units (unknown) date) and they unknown) elected to proceed. Informed consent was obtained (unknown) (no (unknown) (unknown) power. (units (unkno wn) date) unknown) (unknown) (no (unknown) (unknown) read the note (units ( unknown) date) carefully and unknown) recognize, using context, where these substitutions (unknown) (no (unknown) (unknown) software. Although (units (unknown) date) every effort is made unknown) to edit content, shelter monitor errors (unknown) (no (unknown) (unknown) solution was used (units (unknown) date) for anesthetic. unknown) Subsequently then a 22 gauge needle was (unknown) (no (unknown) (unknown) suprapatellar (units (u nknown) date) approach from a unknown) lateral perspective. Ultrasound guidance was used (unknown) (no (unknown) (unknown) tamsulosin 0.4 mg (units (unknown) date) capsule 0.4 mg PO unknown) DAILY 06/22/20 [History Confirmed 01/18/21] (unknown) (no (unknown) (unknown) the injection (units ( unknown) date) procedure for unknown) complete details. (unknown) (no (unknown) (unknown) to identify the (units (unknown) date) anterior articular unknown) space. A 25 gauge needle with 1% lidocaine (unknown) (no (unknown) (unknown) today without (units ( unknown) date) guarantees or unknown) assurances of complete relief applied. Please see Result panel 4 (unknown) (no (unknown) (unknown) (no value) (units (unk nown) date) unknown) (unknown) (no (unknown) (unknown) Medications: (units (u nknown) date) unknown) (unknown) (no (unknown) (unknown) Orders: (units (unkno wn) date) unknown) (unknown) (no (unknown) (unknown) Qualifiers: (units (un known) date) unknown) (unknown) (no (unknown) (unknown) Status: Acute (units ( unknown) date) unknown) (unknown) (no (unknown) (unknown) (no value) (units (unk nown) date) unknown) (unknown) (no (unknown) (unknown) (no value) (units (unk nown) date) unknown) (unknown) (no (unknown) (unknown) 08/21/21 (units (unkno wn) date) unknown) (unknown) (no (unknown) (unknown) 14:13 (units (unkno wn) date) unknown) (unknown) (no (unknown) (unknown) RIP Fair [id number] (unit s (unknown) date) unknown) (unknown) (no (unknown) (unknown) Dose Route (units (unknown) date) Admin Location Lot unknown) Number Expiration Date NDC (unknown) (no (unknown) (unknown) Draft (units (unkno wn) date) unknown) (unknown) (no (unknown) (unknown) Osteoarthritis (units (unknown) date) type: primary unknown) Laterality: bilateral Qualified Code(s): (unknown) (no (unknown) (unknown) Pain Visit (units (unk nown) date) unknown) (unknown) (no (unknown) (unknown) [facility] (unit s (unknown) date) Management unknown) (unknown) (no (unknown) (unknown) (no value) (units (unk nown) date) unknown) (unknown) (no (unknown) (unknown) Human Resources Benefits Administrator (units (u nknown) date) unknown) (unknown) (no (unknown) (unknown) (1) Degenerative (units (unknown) date) joint disease of unknown) knee: (unknown) (no (unknown) (unknown) (2) History of (units (unknown) date) right hip unknown) replacement: (unknown) (no (unknown) (unknown) (3) (units (unkno wn) date) Spondylolisthesis at unknown) L4-L5 level: (unknown) (no (unknown) (unknown) (4) Facet (units (unkn own) date) arthropathy, lumbar: unknown) (unknown) (no (unknown) (unknown) [id number] (units (unkno wn) date) unknown) (unknown) (no (unknown) (unknown) 06/22/20 [History (units (unknown) date) Confirmed 01/18/21] unknown) (unknown) (no (unknown) (unknown) 08/21/21 (units (unkno wn) date) unknown) (unknown) (no (unknown) (unknown) 60 mg (units (unkno wn) date) intra-articular left unknown) knee 01/09/24 [id number] [facility] (unknown) (no (unknown) (unknown) 60 mg (units (unkno wn) date) intra-articular unknown) right knee 01/09/24 [id number] [facility] (unknown) (no (unknown) (unknown) Accompanied by: (units (unknown) date) Self / Same As unknown) Patient (unknown) (no (unknown) (unknown) Administered by: (units (unknown) date) Aneesh Romero DO on unknown) 08/21/21 14:28 (unknown) (no (unknown) (unknown) Age/Sex: 76 / M (units (unknown) date) Date of Service: unknown) (unknown) (no (unknown) (unknown) All of his (units (unk nown) date) questions were unknown) answered to the best my ability he is in agreement (unknown) (no (unknown) (unknown) Allergies (units (unkn own) date) unknown) (unknown) (no (unknown) (unknown) Art and I discussed (unit s (unknown) date) at length his unknown) underlying pathology is done very well status (unknown) (no (unknown) (unknown) As oral consent, we (unit s (unknown) date) did review the risk unknown) to the above-stated procedure including (unknown) (no (unknown) (unknown) Assessment + Plan (units (unknown) date) unknown) (unknown) (no (unknown) (unknown) Attending Dr: (units ( unknown) date) Aneesh Romero DLaurenOLauren unknown) (unknown) (no (unknown) (unknown) BMI 31.2 (units (un known) date) unknown) (unknown) (no (unknown) (unknown) BP 130/78 (units (u nknown) date) unknown) (unknown) (no (unknown) (unknown) Blood Pressure (units (unknown) date) Location Rt unknown) brachial (unknown) (no (unknown) (unknown) Confirmed 06/05/21] (unit s (unknown) date) unknown) (unknown) (no (unknown) (unknown) Confirmed 08/21/21] (unit s (unknown) date) unknown) (unknown) (no (unknown) (unknown) Confirmed 01/18/21] (unit s (unknown) date) unknown) (unknown) (no (unknown) (unknown) DJD.? Does report (units (unknown) date) some return of unknown) symptoms as of late and would like to repeat (unknown) (no (unknown) (unknown) : 1945 (units (unknown) date) Acct:[id number] unknown) (unknown) (no (unknown) (unknown) 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 unknown) (unknown) (no (unknown) (unknown) Documented By: (units (unknown) date) Aneesh Romero D.O. 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, unspecified knee (unknown) (no (unknown) (unknown) Exam (units (unkno wn) date) unknown) (unknown) (no (unknown) (unknown) Exam Narrative (units (unknown) date) unknown) (unknown) (no (unknown) (unknown) Exam Narrative: (units (unknown) date) unknown) (unknown) (no (unknown) (unknown) Exp: 01/09/2024 (units (unknown) date) unknown) (unknown) (no (unknown) (unknown) Facet arthropathy, (units (unknown) date) lumbar unknown) (unknown) (no (unknown) (unknown) Family History (units (unknown) date) (Reviewed 06/05/21 @ unknown) 12:38 by Aneesh Romero DO) (unknown) (no (unknown) (unknown) Father TIA (units (u nknown) date) (transient ischemic unknown) attack) (unknown) (no (unknown) (unknown) 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 (unknown) (no (unknown) (unknown) Gait: (units (unkno wn) date) normalCoordination: unknown) normal (unknown) (no (unknown) (unknown) General Appearance: (unit s (unknown) date) well-nourished, well unknown) developed in no acute distress (unknown) (no (unknown) (unknown) H/O Achilles tendon (unit s (unknown) date) repair unknown) (unknown) (no (unknown) (unknown) HERE FOR BILATERAL (units (unknown) date) KNEE DUROLANE unknown) (unknown) (no (unknown) (unknown) He did reports that (unit s (unknown) date) his most predominant unknown) symptoms involve his right hip (unknown) (no (unknown) (unknown) He is now status (units (unknown) date) post right-sided L3, unknown) L4, L5 and S1 medial branch blocks (unknown) (no (unknown) (unknown) Height 6 ft 3 in (unit s (unknown) date) unknown) (unknown) (no (unknown) (unknown) History of (units (unk nown) date) arthroplasty of unknown) right shoulder (unknown) (no (unknown) (unknown) History of right (units (unknown) date) hip replacement unknown) (unknown) (no (unknown) (unknown) Inspection / (units (u nknown) date) Palpation LE (R/L): unknown) non-tender bilaterally (unknown) (no (unknown) (unknown) Intake (units (unkno wn) date) unknown) (unknown) (no (unknown) (unknown) Intake Clinical (units (unknown) date) Staff unknown) (unknown) (no (unknown) (unknown) Intake Note: (units (u nknown) date) unknown) (unknown) (no (unknown) (unknown) Intake performed (units (unknown) date) by: Michelle Lawson unknown) (unknown) (no (unknown) (unknown) Interventions/Proc. (unit s (unknown) date) unknown) (unknown) (no (unknown) (unknown) Interventions: (units (unknown) date) unknown) (unknown) (no (unknown) (unknown) Is patient in (units ( unknown) date) pain?: Yes (HERE FOR unknown) ILATERAL KNEE DUROLANE) Pain scale (1-10): 4 (unknown) (no (unknown) (unknown) Knee A/P Stability (units (unknown) date) (R/L): Jessica unknown) (0+/0+); Posterior Drawer (0+/0+) (unknown) (no (unknown) (unknown) Knee Exam Bilateral (unit s (unknown) date) unknown) (unknown) (no (unknown) (unknown) Knee M/L Stability (units (unknown) date) (R/L): Varus unknown) (0+/0+); Valgus (0+/0+) (unknown) (no (unknown) (unknown) Knee ROM (R/L): (units (unknown) date) 0-130 / 0-130 unknown) (unknown) (no (unknown) (unknown) LE Skin: no rashes (units (unknown) date) or lesions unknown) bilaterally (unknown) (no (unknown) (unknown) Left humeral (units (u nknown) date) fracture unknown) (unknown) (no (unknown) (unknown) Loc: PAIN (units (unkn own) date) unknown) (unknown) (no (unknown) (unknown) Lot: [id number] (units (un known) date) unknown) (unknown) (no (unknown) (unknown) M17.0 - Bilateral (units (unknown) date) primary unknown) osteoarthritis of knee (unknown) (no (unknown) (unknown) Medical History (units (unknown) date) (Reviewed 06/05/21 @ unknown) 12:38 by Aneesh Romero DO) (unknown) (no (unknown) (unknown) Medications (units (un known) date) unknown) (unknown) (no (unknown) (unknown) No Known Drug (units ( unknown) date) Allergies Allergy unknown) (Verified 08/21/21 14:02) (unknown) (no (unknown) (unknown) Office Meds (units (un known) date) unknown) (unknown) (no (unknown) (unknown) Orders (units (unkno wn) date) unknown) (unknown) (no (unknown) (unknown) Orientation: (units (u nknown) date) oriented to person, unknown) place and time. Mood / Affect: calm (unknown) (no (unknown) (unknown) Oxygen Delivery (units (unknown) date) Method room air unknown) (unknown) (no (unknown) (unknown) PFSH (units (unkno wn) date) unknown) (unknown) (no (unknown) (unknown) Pain Scale (units (unk nown) date) unknown) (unknown) (no (unknown) (unknown) Patient: (units (unkno wn) date) Estrada Staley C unknown) MR#: [id number] (unknown) (no (unknown) (unknown) Performing (units (unk nown) date) Provider: Aneesh unknown) DO Heather (unknown) (no (unknown) (unknown) Plan (units (unkno wn) date) unknown) (unknown) (no (unknown) (unknown) Position Sitting (unit s (unknown) date) unknown) (unknown) (no (unknown) (unknown) Pulse 92 H (units ( unknown) date) unknown) (unknown) (no (unknown) (unknown) Pulse Oximetry (%) (units (unknown) date) 97 unknown) (unknown) (no (unknown) (unknown) Pulse Source (units (u nknown) date) Monitor unknown) (unknown) (no (unknown) (unknown) Reason For Visit (units (unknown) date) unknown) (unknown) (no (unknown) (unknown) Refilled (units (unkno wn) date) unknown) (unknown) (no (unknown) (unknown) SNOS now (units (unkno wn) date) approximating 26 unknown) years of age from the total hip arthroplasty performed (unknown) (no (unknown) (unknown) Sensation: (units (unk nown) date) Subjective normal unknown) distal sensation bilaterally (unknown) (no (unknown) (unknown) Signed By: (units (unk nown) date) unknown) (unknown) (no (unknown) (unknown) Smoking Status: (units (unknown) date) Former smoker unknown) (unknown) (no (unknown) (unknown) Spondylolisthesis (units (unknown) date) at L4-L5 level unknown) (unknown) (no (unknown) (unknown) Strength LE: 5/5 (units (unknown) date) EHL, tibialis unknown) anterior, plantar flexion (unknown) (no (unknown) (unknown) Surgical History (units (unknown) date) (Updated 06/05/21 @ unknown) 12:39 by Aneesh Romero DO) (unknown) (no (unknown) (unknown) Temp 98.3 F (units (unknown) date) unknown) (unknown) (no (unknown) (unknown) Temp Source (units (un known) date) Temporal Artery Scan unknown) (unknown) (no (unknown) (unknown) The bilateral knee (units (unknown) date) was prepped in the unknown) superior anterior fashion with (unknown) (no (unknown) (unknown) The patient (units (un known) date) tolerated the unknown) procedure without signs or symptoms of complications (unknown) (no (unknown) (unknown) This note may have (units (unknown) date) been all or unknown) partially generated using voice recognition (unknown) (no (unknown) (unknown) Tobacco + Substance (unit s (unknown) date) Use unknown) (unknown) (no (unknown) (unknown) Tobacco Status (units (unknown) date) unknown) (unknown) (no (unknown) (unknown) Vasculature: <2 (units (unknown) date) second capillary unknown) bilaterally (unknown) (no (unknown) (unknown) Visit Reasons: (units (unknown) date) Bilateral Durolane, unknown) DUROLANE INJECTIONS KNEE'S (unknown) (no (unknown) (unknown) Vitals (units (unkno wn) date) unknown) (unknown) (no (unknown) (unknown) Weight 250 lb (units (unknown) date) unknown) (unknown) (no (unknown) (unknown) acetaminophen 500 (units (unknown) date) mg tablet (Tylenol unknown) Extra Strength) 1,000 mg PO Q6H PRN (unknown) (no (unknown) (unknown) and he is able to (units (unknown) date) walk several miles unknown) if necessary.? We did discuss possible use (unknown) (no (unknown) (unknown) aspirin 81 mg (units ( unknown) date) tablet,delayed unknown) release (Adult Low Dose Aspirin) 81 mg PO DAILY (unknown) (no (unknown) (unknown) atorvastatin 10 mg (units (unknown) date) tablet 10 mg PO unknown) DAILY 06/22/20 [History Confirmed 01/18/21] (unknown) (no (unknown) (unknown) atraumatically (units (unknown) date) introduced and unknown) advanced into the intra-articular space. After (unknown) (no (unknown) (unknown) back pain (units (unkn own) date) right-sided in unknown) nature.? This is his 2nd block to date any remains a (unknown) (no (unknown) (unknown) but not limited to (units (unknown) date) bleeding, infection, unknown) allergic reaction, nerve injury, stroke, (unknown) (no (unknown) (unknown) celecoxib (units (unkn own) date) (Celebrex) 200 mg unknown) PO DAILY 90 caps 2RF (unknown) (no (unknown) (unknown) celecoxib 200 mg (units (unknown) date) capsule (Celebrex) unknown) 200 mg PO DAILY #90 caps 08/21/21 [Rx (unknown) (no (unknown) (unknown) cholecalciferol (units (unknown) date) (vitamin D3) 50 mcg unknown) (2,000 unit) capsule 50 mcg PO DAILY (unknown) (no (unknown) (unknown) coenzyme Q10 75 mg (units (unknown) date) capsule (Ultra unknown) CoQ10) 75 mg PO DAILY 10/05/20 [History (unknown) (no (unknown) (unknown) especially when (units (unknown) date) sleeping at night.? unknown) He does report that the back injection did (unknown) (no (unknown) (unknown) have occurred. If (units (unknown) date) there are any unknown) questions, please contact the Medical Records (unknown) (no (unknown) (unknown) hyaluronate sodium, (unit s (unknown) date) stabilized unknown) (unknown) (no (unknown) (unknown) may occur. (units (unk nown) date) Occasional unknown) wrong-word or 'sound-alike' substitutions may have (unknown) (no (unknown) (unknown) negative aspiration (unit s (unknown) date) ampule of Duralane unknown) was administered without incident. (unknown) (no (unknown) (unknown) not affect his (units (unknown) date) right hip.? The unknown) right hip is been evaluated with Dr. Yanez at (unknown) (no (unknown) (unknown) noted significant (units (unknown) date) relief prior to unknown) dismissal in excellent condition of their own (unknown) (no (unknown) (unknown) occurred due to the (unit s (unknown) date) inherent limitations unknown) of voice recognition software. Please (unknown) (no (unknown) (unknown) of tramadol 50 mg (units (unknown) date) tablets p.o. q.h.s. unknown) to assist him with improved sleep patterns (unknown) (no (unknown) (unknown) omeprazole 20 mg (units (unknown) date) capsule,delayed unknown) release 20 mg PO DAILY 06/05/21 [History (unknown) (no (unknown) (unknown) paralysis, and (units (unknown) date) and they unknown) elected to proceed. Informed consent was obtained (unknown) (no (unknown) (unknown) performed on (units (u nknown) date) 03/21/2021.? He has unknown) done very well with reduction in his axial low (unknown) (no (unknown) (unknown) post Durolane (units (u nknown) date) injections performed unknown) on 01/18/2021 secondary to his bilateral knee (unknown) (no (unknown) (unknown) power. (units (unkno wn) date) unknown) (unknown) (no (unknown) (unknown) previously..? We (units (unknown) date) did discuss unknown) treatment options available to him as a revision (unknown) (no (unknown) (unknown) prime candidate for (unit s (unknown) date) medial branch unknown) rhizotomy should symptoms return.? (unknown) (no (unknown) (unknown) read the note (units ( unknown) date) carefully and unknown) recognize, using context, where these substitutions (unknown) (no (unknown) (unknown) software. Although (units (unknown) date) every effort is made unknown) to edit content, shelter monitor errors (unknown) (no (unknown) (unknown) solution was used (units (unknown) date) for anesthetic. unknown) Subsequently then a 22 gauge needle was (unknown) (no (unknown) (unknown) suprapatellar (units (u nknown) date) approach from a unknown) lateral perspective. Ultrasound guidance was used (unknown) (no (unknown) (unknown) tamsulosin 0.4 mg (units (unknown) date) capsule 0.4 mg PO unknown) DAILY 06/22/20 [History Confirmed 01/18/21] (unknown) (no (unknown) (unknown) the Durolane (units (u nknown) date) injections today.? unknown) (unknown) (no (unknown) (unknown) the injection (units ( unknown) date) procedure for unknown) complete details. (unknown) (no (unknown) (unknown) to identify the (units (unknown) date) anterior articular unknown) space. A 25 gauge needle with 1% lidocaine (unknown) (no (unknown) (unknown) today without (units ( unknown) date) guarantees or unknown) assurances of complete relief applied. Please see (unknown) (no (unknown) (unknown) total hip does not (units (unknown) date) appear to be unknown) necessary as with ambulation his pain is minimal (unknown) (no (unknown) (unknown) while not (units (unkn own) date) proceeding with a unknown) total hip arthroplasty revision.? (unknown) (no (unknown) (unknown) with the (units (unkno wn) date) above-stated plans. unknown) Result panel 5 (unknown) (no (unknown) (unknown) (no value) (units (unk nown) date) unknown) (unknown) (no (unknown) (unknown) Medications: (units (u nknown) date) unknown) (unknown) (no (unknown) (unknown) Orders: (units (unkno wn) date) unknown) (unknown) (no (unknown) (unknown) Qualifiers: (units (un known) date) unknown) (unknown) (no (unknown) (unknown) Status: Acute (units ( unknown) date) unknown) (unknown) (no (unknown) (unknown) (no value) (units (unk nown) date) unknown) (unknown) (no (unknown) (unknown) (no value) (units (unk nown) date) unknown) (unknown) (no (unknown) (unknown) 08/21/21 (units (unkno wn) date) unknown) (unknown) (no (unknown) (unknown) 08/21/21 1449 (units ( unknown) date) unknown) (unknown) (no (unknown) (unknown) 14:13 (units (unkno wn) date) unknown) (unknown) (no (unknown) (unknown) RIP Fair [id number] (unit s (unknown) date) unknown) (unknown) (no (unknown) (unknown) Dose Route (units (unknown) date) Admin Location Lot unknown) Number Expiration Date NDC (unknown) (no (unknown) (unknown) Osteoarthritis (units (unknown) date) type: primary unknown) Laterality: bilateral Qualified Code(s): (unknown) (no (unknown) (unknown) Pain Visit (units (unk nown) date) unknown) (unknown) (no (unknown) (unknown) Signed (units (unkno wn) date) unknown) (unknown) (no (unknown) (unknown) [facility] (unit s (unknown) date) Management unknown) (unknown) (no (unknown) (unknown) (no value) (units (unk nown) date) unknown) (unknown) (no (unknown) (unknown) Human Resources Benefits Administrator (units (u nknown) date) unknown) (unknown) (no (unknown) (unknown) (1) Degenerative (units (unknown) date) joint disease of unknown) knee: (unknown) (no (unknown) (unknown) (2) History of (units (unknown) date) right hip unknown) replacement: (unknown) (no (unknown) (unknown) (3) (units (unkno wn) date) Spondylolisthesis at unknown) L4-L5 level: (unknown) (no (unknown) (unknown) (4) Facet (units (unkn own) date) arthropathy, lumbar: unknown) (unknown) (no (unknown) (unknown) [id number] (units (unkno wn) date) unknown) (unknown) (no (unknown) (unknown) 06/22/20 [History (units (unknown) date) Confirmed 01/18/21] unknown) (unknown) (no (unknown) (unknown) 08/21/21 (units (unkno wn) date) unknown) (unknown) (no (unknown) (unknown) 60 mg (units (unkno wn) date) intra-articular left unknown) knee 01/09/24 [id number] [facility] (unknown) (no (unknown) (unknown) 60 mg (units (unkno wn) date) intra-articular unknown) right knee 01/09/24 [id number] [facility] (unknown) (no (unknown) (unknown) Accompanied by: (units (unknown) date) Self / Same As unknown) Patient (unknown) (no (unknown) (unknown) Administered by: (units (unknown) date) Aneesh Romero DO on unknown) 08/21/21 14:28 (unknown) (no (unknown) (unknown) Age/Sex: 76 / M (units (unknown) date) Date of Service: unknown) (unknown) (no (unknown) (unknown) All of his (units (unk nown) date) questions were unknown) answered to the best my ability he is in agreement (unknown) (no (unknown) (unknown) Allergies (units (unkn own) date) unknown) (unknown) (no (unknown) (unknown) Art and I discussed (unit s (unknown) date) at length his unknown) underlying pathology is done very well status (unknown) (no (unknown) (unknown) Art presents today (units (unknown) date) s/p right L3 to S1 unknown) MBB performed 03/21/2021. He reports (unknown) (no (unknown) (unknown) As oral consent, we (unit s (unknown) date) did review the risk unknown) to the above-stated procedure including (unknown) (no (unknown) (unknown) Assessment + Plan (units (unknown) date) unknown) (unknown) (no (unknown) (unknown) Attending Dr: (units ( unknown) date) Aneesh TranOLauren unknown) (unknown) (no (unknown) (unknown) BMI 31.2 (units (un known) date) unknown) (unknown) (no (unknown) (unknown) BP 130/78 (units (u nknown) date) unknown) (unknown) (no (unknown) (unknown) Blood Pressure (units (unknown) date) Location Rt unknown) brachial (unknown) (no (unknown) (unknown) Chief Complaint (units (unknown) date) unknown) (unknown) (no (unknown) (unknown) Chief Complaint: (units (unknown) date) Bilateral knee unknown) Durolane injection, hip pain, low back pain (unknown) (no (unknown) (unknown) Confirmed 06/05/21] (unit s (unknown) date) unknown) (unknown) (no (unknown) (unknown) Confirmed 08/21/21] (unit s (unknown) date) unknown) (unknown) (no (unknown) (unknown) Confirmed 01/18/21] (unit s (unknown) date) unknown) (unknown) (no (unknown) (unknown) DJD.? Does report (units (unknown) date) some return of unknown) symptoms as of late and would like to repeat (unknown) (no (unknown) (unknown) : 1945 (units (unknown) date) Acct:[id number] unknown) (unknown) (no (unknown) (unknown) 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 unknown) (unknown) (no (unknown) (unknown) Details: (units (unkno wn) date) unknown) (unknown) (no (unknown) (unknown) Documented By: (units (unknown) date) Aneesh Romero D.O. unknown) 08/21/21 1401 (unknown) (no (unknown) (unknown) Dr. Myles in to (units (unknown) date) April 07, 2020. He unknown) does report good resolution of symptoms but (unknown) (no (unknown) (unknown) Durolane 60mg Today (unit s (unknown) date) unknown) (unknown) (no (unknown) (unknown) Durolane 60mg Today (units (unknown) date) M17.10 - Unilateral unknown) primary osteoarthritis, unspecified knee (unknown) (no (unknown) (unknown) Exam (units (unkno wn) date) unknown) (unknown) (no (unknown) (unknown) Exam Narrative (units (unknown) date) unknown) (unknown) (no (unknown) (unknown) Exam Narrative: (units (unknown) date) unknown) (unknown) (no (unknown) (unknown) Exp: 01/09/2024 (units (unknown) date) unknown) (unknown) (no (unknown) (unknown) Facet arthropathy, (units (unknown) date) lumbar unknown) (unknown) (no (unknown) (unknown) Family History (units (unknown) date) (Reviewed 06/05/21 @ unknown) 12:38 by Aneesh Romero DO) (unknown) (no (unknown) (unknown) Father TIA (units (u nknown) date) (transient ischemic unknown) attack) (unknown) (no (unknown) (unknown) 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 (unknown) (no (unknown) (unknown) Gait: (units (unkno wn) date) normalCoordination: unknown) normal (unknown) (no (unknown) (unknown) General Appearance: (unit s (unknown) date) well-nourished, well unknown) developed in no acute distress (unknown) (no (unknown) (unknown) H/O Achilles tendon (unit s (unknown) date) repair unknown) (unknown) (no (unknown) (unknown) HERE FOR BILATERAL (units (unknown) date) KNEE DUROLANE unknown) (unknown) (no (unknown) (unknown) HPI (units (unkno wn) date) unknown) (unknown) (no (unknown) (unknown) He did reports that (unit s (unknown) date) his most predominant unknown) symptoms involve his right hip (unknown) (no (unknown) (unknown) He is now status (units (unknown) date) post right-sided L3, unknown) L4, L5 and S1 medial branch blocks (unknown) (no (unknown) (unknown) He otherwise (units (u nknown) date) reports were well unknown) maintain the Covid19 social restrictions without (unknown) (no (unknown) (unknown) Height 6 ft 3 in (unit s (unknown) date) unknown) (unknown) (no (unknown) (unknown) History of (units (unk nown) date) arthroplasty of unknown) right shoulder (unknown) (no (unknown) (unknown) History of right (units (unknown) date) hip replacement unknown) (unknown) (no (unknown) (unknown) Inspection / (units (u nknown) date) Palpation LE (R/L): unknown) non-tender bilaterally (unknown) (no (unknown) (unknown) Intake (units (unkno wn) date) unknown) (unknown) (no (unknown) (unknown) Intake Clinical (units (unknown) date) Staff unknown) (unknown) (no (unknown) (unknown) Intake Note: (units (u nknown) date) unknown) (unknown) (no (unknown) (unknown) Intake performed (units (unknown) date) by: Michelle Lawson unknown) (unknown) (no (unknown) (unknown) Interventions/Proc. (unit s (unknown) date) unknown) (unknown) (no (unknown) (unknown) Interventions: (units (unknown) date) unknown) (unknown) (no (unknown) (unknown) Is patient in (units ( unknown) date) pain?: Yes (HERE FOR unknown) ILATERAL KNEE DUROLANE) Pain scale (1-10): 4 (unknown) (no (unknown) (unknown) Knee A/P Stability (units (unknown) date) (R/L): Jessica unknown) (0+/0+); Posterior Drawer (0+/0+) (unknown) (no (unknown) (unknown) Knee Exam Bilateral (unit s (unknown) date) unknown) (unknown) (no (unknown) (unknown) Knee M/L Stability (units (unknown) date) (R/L): Varus unknown) (0+/0+); Valgus (0+/0+) (unknown) (no (unknown) (unknown) Knee ROM (R/L): (units (unknown) date) 0-130 / 0-130 unknown) (unknown) (no (unknown) (unknown) LE Skin: no rashes (units (unknown) date) or lesions unknown) bilaterally (unknown) (no (unknown) (unknown) Left humeral (units (u nknown) date) fracture unknown) (unknown) (no (unknown) (unknown) Loc: [facility] (units (unkn own) date) unknown) (unknown) (no (unknown) (unknown) Lot: [id number] (units (un known) date) unknown) (unknown) (no (unknown) (unknown) M17.0 - Bilateral (units (unknown) date) primary unknown) osteoarthritis of knee (unknown) (no (unknown) (unknown) Medical History (units (unknown) date) (Reviewed 06/05/21 @ unknown) 12:38 by Aneesh Romero DO) (unknown) (no (unknown) (unknown) Medications (units (un known) date) unknown) (unknown) (no (unknown) (unknown) No Known Drug (units ( unknown) date) Allergies Allergy unknown) (Verified 08/21/21 14:02) (unknown) (no (unknown) (unknown) Office Meds (units (un known) date) unknown) (unknown) (no (unknown) (unknown) Orders (units (unkno wn) date) unknown) (unknown) (no (unknown) (unknown) Orientation: (units (u nknown) date) oriented to person, unknown) place and time. Mood / Affect: calm (unknown) (no (unknown) (unknown) Oxygen Delivery (units (unknown) date) Method room air unknown) (unknown) (no (unknown) (unknown) PFSH (units (unkno wn) date) unknown) (unknown) (no (unknown) (unknown) Pain Scale (units (unk nown) date) unknown) (unknown) (no (unknown) (unknown) Patient: (units (unkno wn) date) Estrada Staley unknown) MR#: [id number] (unknown) (no (unknown) (unknown) Performing (units (unk nown) date) Provider: Aneesh unknown) DO Heather (unknown) (no (unknown) (unknown) Plan (units (unkno wn) date) unknown) (unknown) (no (unknown) (unknown) Position Sitting (unit s (unknown) date) unknown) (unknown) (no (unknown) (unknown) Pulse 92 H (units ( unknown) date) unknown) (unknown) (no (unknown) (unknown) Pulse Oximetry (%) (units (unknown) date) 97 unknown) (unknown) (no (unknown) (unknown) Pulse Source (units (u nknown) date) Monitor unknown) (unknown) (no (unknown) (unknown) Reason For Visit (units (unknown) date) unknown) (unknown) (no (unknown) (unknown) Refilled (units (unkno wn) date) unknown) (unknown) (no (unknown) (unknown) SNOS now (units (unkno wn) date) approximating 26 unknown) years of age from the total hip arthroplasty performed (unknown) (no (unknown) (unknown) Sensation: (units (unk nown) date) Subjective normal unknown) distal sensation bilaterally (unknown) (no (unknown) (unknown) She found evidence (units (unknown) date) of a slip at L4-5 as unknown) well as foraminal stenosis at 4 5 and (unknown) (no (unknown) (unknown) Signed By: (units (unk nown) date) <Electronically unknown) signed by Aneesh Romero D.O.> (unknown) (no (unknown) (unknown) Smoking Status: (units (unknown) date) Former smoker unknown) (unknown) (no (unknown) (unknown) Spondylolisthesis (units (unknown) date) at L4-L5 level unknown) (unknown) (no (unknown) (unknown) Strength LE: 5/5 (units (unknown) date) EHL, tibialis unknown) anterior, plantar flexion (unknown) (no (unknown) (unknown) Surgical History (units (unknown) date) (Updated 06/05/21 @ unknown) 12:39 by Aneesh Romero DO) (unknown) (no (unknown) (unknown) Temp 98.3 F (units (unknown) date) unknown) (unknown) (no (unknown) (unknown) Temp Source (units (un known) date) Temporal Artery Scan unknown) (unknown) (no (unknown) (unknown) The bilateral knee (units (unknown) date) was prepped in the unknown) superior anterior fashion with (unknown) (no (unknown) (unknown) The patient (units (un known) date) tolerated the unknown) procedure without signs or symptoms of complications (unknown) (no (unknown) (unknown) This note may have (units (unknown) date) been all or unknown) partially generated using voice recognition (unknown) (no (unknown) (unknown) Tobacco + Substance (unit s (unknown) date) Use unknown) (unknown) (no (unknown) (unknown) Tobacco Status (units (unknown) date) unknown) (unknown) (no (unknown) (unknown) Vasculature: <2 (units (unknown) date) second capillary unknown) bilaterally (unknown) (no (unknown) (unknown) Visit Reasons: (units (unknown) date) Bilateral Durolane, unknown) DUROLANE INJECTIONS KNEE'S (unknown) (no (unknown) (unknown) Vitals (units (unkno wn) date) unknown) (unknown) (no (unknown) (unknown) Weight 250 lb (units (unknown) date) unknown) (unknown) (no (unknown) (unknown) acetaminophen 500 (units (unknown) date) mg tablet (Tylenol unknown) Extra Strength) 1,000 mg PO Q6H PRN (unknown) (no (unknown) (unknown) and he is able to (units (unknown) date) walk several miles unknown) if necessary.? We did discuss possible use (unknown) (no (unknown) (unknown) approximately 25 (units (unknown) date) years graded as unknown) right hip replaced after years in the building (unknown) (no (unknown) (unknown) aspirin 81 mg (units ( unknown) date) tablet,delayed unknown) release (Adult Low Dose Aspirin) 81 mg PO DAILY (unknown) (no (unknown) (unknown) atorvastatin 10 mg (units (unknown) date) tablet 10 mg PO unknown) DAILY 06/22/20 [History Confirmed 01/18/21] (unknown) (no (unknown) (unknown) atraumatically (units (unknown) date) introduced and unknown) advanced into the intra-articular space. After (unknown) (no (unknown) (unknown) ay occur. (units (unkn own) date) Occasional unknown) wrong-word or 'sound-alike' substitutions may have (unknown) (no (unknown) (unknown) back pain (units (unkn own) date) right-sided in unknown) nature.? This is his 2nd block to date any remains a (unknown) (no (unknown) (unknown) but not limited to (units (unknown) date) bleeding, infection, unknown) allergic reaction, nerve injury, stroke, (unknown) (no (unknown) (unknown) celecoxib (units (unkn own) date) (Celebrex) 200 mg unknown) PO DAILY 90 caps 2RF (unknown) (no (unknown) (unknown) celecoxib 200 mg (units (unknown) date) capsule (Celebrex) unknown) 200 mg PO DAILY #90 caps 08/21/21 [Rx (unknown) (no (unknown) (unknown) cholecalciferol (units (unknown) date) (vitamin D3) 50 mcg unknown) (2,000 unit) capsule 50 mcg PO DAILY (unknown) (no (unknown) (unknown) coenzyme Q10 75 mg (units (unknown) date) capsule (Ultra unknown) CoQ10) 75 mg PO DAILY 10/05/20 [History (unknown) (no (unknown) (unknown) continues at this (units (unknown) date) time. unknown) (unknown) (no (unknown) (unknown) cough fever fatigue (unit s (unknown) date) at this kristina unknown) (unknown) (no (unknown) (unknown) especially when (units (unknown) date) sleeping at night.? unknown) He does report that the back injection did (unknown) (no (unknown) (unknown) evaluation by (units (unknown) date) Beau at scheduled unknown) [facility] for possible (unknown) (no (unknown) (unknown) evaluation (units (unk nown) date) treatment of unknown) right-sided axial low back pain with radiation to the (unknown) (no (unknown) (unknown) guarantees or (units ( unknown) date) assurances of unknown) complete relief applied. Please see the procedure (unknown) (no (unknown) (unknown) has lost close to (units (unknown) date) 60 lb controlled unknown) weight loss program through [facility].? He (unknown) (no (unknown) (unknown) have occurred. If (units (unknown) date) there are any unknown) questions, please contact the Medical Records (unknown) (no (unknown) (unknown) him at night.? He (units (unknown) date) reports taking unknown) occasional naproxen sodium for this but does (unknown) (no (unknown) (unknown) hyaluronate sodium, (unit s (unknown) date) stabilized unknown) (unknown) (no (unknown) (unknown) infection, allergic (unit s (unknown) date) reaction, nerve unknown) injury, stroke, paralysis and and the (unknown) (no (unknown) (unknown) length and verbal (units (unknown) date) consent was obtained unknown) today, As oral consent, we did review the (unknown) (no (unknown) (unknown) negative aspiration (unit s (unknown) date) ampule of Duralane unknown) was administered without incident. (unknown) (no (unknown) (unknown) not affect his (units (unknown) date) right hip.? The unknown) right hip is been evaluated with Dr. Yanez at (unknown) (no (unknown) (unknown) not find any (units (un known) date) significant unknown) benefit.? Additionally he reports than the last year he (unknown) (no (unknown) (unknown) note for full (units ( unknown) date) details. unknown) (unknown) (no (unknown) (unknown) noted significant (units (unknown) date) relief prior to unknown) dismissal in excellent condition of their own (unknown) (no (unknown) (unknown) occurred due to the (unit s (unknown) date) inherent limitations unknown) of voice recognition software. Please (unknown) (no (unknown) (unknown) of trazadone 50-100 (unit s (unknown) date) mg tablets p.o. unknown) q.h.s. to assist him with improved sleep (unknown) (no (unknown) (unknown) omeprazole 20 mg (units (unknown) date) capsule,delayed unknown) release 20 mg PO DAILY 06/05/21 [History (unknown) (no (unknown) (unknown) paralysis, and (units (unknown) date) and they unknown) elected to proceed. Informed consent was obtained (unknown) (no (unknown) (unknown) patient elected to (units (unknown) date) proceed. Informed unknown) consent was obtained today without (unknown) (no (unknown) (unknown) patterns while not (units (unknown) date) proceeding with a unknown) total hip arthroplasty revision.? (unknown) (no (unknown) (unknown) performed on (units (u nknown) date) 03/21/2021.? He has unknown) done very well with reduction in his axial low (unknown) (no (unknown) (unknown) post Durolane (units (u nknown) date) injections performed unknown) on 01/18/2021 secondary to his bilateral knee (unknown) (no (unknown) (unknown) power. (units (unkno wn) date) unknown) (unknown) (no (unknown) (unknown) previously..? We (units (unknown) date) did discuss unknown) treatment options available to him as a revision (unknown) (no (unknown) (unknown) prime candidate for (unit s (unknown) date) medial branch unknown) rhizotomy should symptoms return.? (unknown) (no (unknown) (unknown) progressive in (units (unknown) date) nature from the low unknown) back to the right hip which led to an (unknown) (no (unknown) (unknown) prominent relief (units (unknown) date) without difficulty unknown) from the procedure. He would like further (unknown) (no (unknown) (unknown) read the note (units ( unknown) date) carefully and unknown) recognize, using context, where these substitutions (unknown) (no (unknown) (unknown) right hip, (units (unk nown) date) bilateral knee djd unknown) as well as left humeral pain s/p fx.? He reports (unknown) (no (unknown) (unknown) risks of the above (units (unknown) date) stated procedure unknown) including not limited to bleeding, (unknown) (no (unknown) (unknown) software. Although (units (unknown) date) every effort is made unknown) to edit content, shelter monitor errors m (unknown) (no (unknown) (unknown) solution was used (units (unknown) date) for anesthetic. unknown) Subsequently then a 22 gauge needle was (unknown) (no (unknown) (unknown) still has right (units (unknown) date) lower extremity unknown) weakness reports he cannot lead up stairs with (unknown) (no (unknown) (unknown) suprapatellar (units (u nknown) date) approach from a unknown) lateral perspective. Ultrasound guidance was used (unknown) (no (unknown) (unknown) tamsulosin 0.4 mg (units (unknown) date) capsule 0.4 mg PO unknown) DAILY 06/22/20 [History Confirmed 01/18/21] (unknown) (no (unknown) (unknown) the Durolane (units (u nknown) date) injections today.? unknown) We did review the above-stated procedure at (unknown) (no (unknown) (unknown) the injection (units ( unknown) date) procedure for unknown) complete details. (unknown) (no (unknown) (unknown) the right lower (units (unknown) date) extremity.? He unknown) reports axial low back pain as well that awakens (unknown) (no (unknown) (unknown) to identify the (units (unknown) date) anterior articular unknown) space. A 25 gauge needle with 1% lidocaine (unknown) (no (unknown) (unknown) today without (units ( unknown) date) guarantees or unknown) assurances of complete relief applied. Please see (unknown) (no (unknown) (unknown) total hip does not (units (unknown) date) appear to be unknown) necessary as with ambulation his pain is minimal (unknown) (no (unknown) (unknown) treat as well as (units (unknown) date) playing football.? unknown) He reports that he developed radiating pain (unknown) (no (unknown) (unknown) wear of the right (units (unknown) date) hip.? Dr. Yanez did unknown) report that although he need to lose (unknown) (no (unknown) (unknown) weight at that (units (unknown) date) point he was close unknown) to 300 lb it did not appear to be his hip.? (unknown) (no (unknown) (unknown) with the (units (unkno wn) date) above-stated plans. unknown) (unknown) (no (unknown) (unknown) worse that 3 for (units (unknown) date) which led to a unknown) right-sided L4-5 transforaminal MARY performed by Social History date description facility (no date) Ex-smoker (finding) [facility] Vital Signs date measurement value units +0000 BMI BMI 31.2 kg/m2 [id number]+0000 BP_diastolic BP_diastolic 78 mm[H g] [id number]+0000 BP_systolic BP_systolic 130 mm[Hg] [id number]+0000 heart_rate heart_rate 92 /min [id number]+0000 height_metric height_metric 190.5 cm [id number] height_standard height_standard 75 in [id number]+0000 temperature_metric temperature_metric 36.83 C [id number]+0000 temperature_standard temperature_standard 9 8.3 F [id number]+0000 weight_metric weight_metric 51.44 kg [id number]+0000 weight_standard weight_standard 113.4 lb
== END 2021-10-02 11:33 | disposition home or self-care (01) ==
LOC: ED 10:33
DX: S61.002A Unspecified open wound of left thumb without damage to nail, initial encounter (principal); W20.8XXA Other cause of strike by thrown, projected or falling object, initial encounter; Y93.89 Activity, other specified; Y92.009 Unspecified place in unspecified non-institutional (private) residence as the place of occurrence of the external cause
CPT/HCPCS: 99282; 99283; A9270

== ENCOUNTER 2021-12-27 08:35 | Outpatient (CLI) | payer MEDICARE ==
[2021-12-27 08:52] LABS: BASOPHILS % (AUTO) 0.6 %; EOSINOPHILS # (AUTO) 0.1 10^3/uL (0.0-0.7); EOSINOPHILS % (AUTO) 1.4 %; HCT - HEMATOCRIT 42.2 % (42.0-52.0); HGB - HEMOGLOBIN 14.1 g/dL (14.0-18.0); LYMPHOCYTES # (AUTO) 1.3 10^3/uL (1.5-3.5); LYMPHOCYTES % (AUTO) 35.7 %; MEAN CORPUSCULAR HEMOGLOBIN 29.8 pg (27.0-31.0); MEAN CORPUSCULAR HGB CONC 33.4 g/dL (32.0-36.0); MEAN CORPUSCULAR VOLUME 89.2 fL (80.0-94.0); MEAN PLATELET VOLUME 9.7 fL (7.4-11.4); MONOCYTES # (AUTO) 0.3 10^3/uL (0.0-1.0); MONOCYTES % (AUTO) 8.6 %; NEUTROPHILS # (AUTO) 1.9 10^3/uL (1.5-6.6); NEUTROPHILS % (AUTO) 53.4 %; PLT - PLATELET COUNT 215 10^3/uL (130-450); RED BLOOD COUNT 4.73 10^6/uL (4.70-6.10); RED CELL DISTRIBUTION WIDTH 13.2 % (12.0-15.0); WHITE BLOOD COUNT 3.6 x10^3/uL (4.8-10.8)
[2021-12-27 09:08] LABS: CREATININE 0.7 mg/dL (0.6-1.2); POTASSIUM 4.2 mmol/L (3.5-5.0)
== END 2021-12-27 08:36 | disposition home or self-care (01) ==
LOC: LAB 08:35
PROVIDERS: ATTEND Orthopaedic Surgery
DX: Z01.818 Encounter for other preprocedural examination (principal); M25.512 Pain in left shoulder
CPT/HCPCS: 36415; 80048; 85025; 93005

== ENCOUNTER 2023-02-11 10:05 | Outpatient (CLI) | payer MEDICARE ==
--- NOTE | 2023-02-11 19:06 | XRAY Report ---
PROCEDURE: Knee 3 View BILAT INDICATIONS: BILATERAL OSTEOARTHRITIS TECHNIQUE: 3 views of the knee was obtained. COMPARISON: None FINDINGS: Bones: No fractures or dislocations. No suspicious bony lesions. Moderate bilateral joint space erasmo rowing involving both the medial lateral compartments with marginal Soft tissues: Small bilateral knee joint effusion. No suspicious soft tissue calcifications or crescencio s. IMPRESSION: Moderate osteoarthritis Reviewed by: Nithin Montenegro MD on 02/11/2023 6:05 PM [place] Approved by: Nithin Montenegro MD on 02/11/2023 6:05 PM [place] Station ID: [id number]
== END 2023-02-11 10:06 | disposition home or self-care (01) ==
LOC: DI 10:05
PROVIDERS: ATTEND Internal Medicine
DX: M17.0 Bilateral primary osteoarthritis of knee (principal)

== ENCOUNTER 2023-04-09 08:40 | Outpatient (CLI) | payer MEDICARE ==
[2023-04-09 12:37] LABS: BASOPHILS % (AUTO) 0.6 %; EOSINOPHILS # (AUTO) 0.1 10^3/uL (0.0-0.7); EOSINOPHILS % (AUTO) 1.4 %; HCT - HEMATOCRIT 44.8 % (42.0-52.0); HGB - HEMOGLOBIN 14.9 g/dL (14.0-18.0); LYMPHOCYTES % (AUTO) 28.8 %; MEAN CORPUSCULAR HEMOGLOBIN 30.2 pg (27.0-31.0); MEAN CORPUSCULAR HGB CONC 33.3 g/dL (32.0-36.0); MEAN CORPUSCULAR VOLUME 90.7 fL (80.0-94.0); MEAN PLATELET VOLUME 10.9 fL (7.4-11.4); MONOCYTES # (AUTO) 0.3 10^3/uL (0.0-1.0); MONOCYTES % (AUTO) 8.9 %; NEUTROPHILS # (AUTO) 2.1 10^3/uL (1.5-6.6); PLT - PLATELET COUNT 228 10^3/uL (130-450); RED BLOOD COUNT 4.94 10^6/uL (4.70-6.10); RED CELL DISTRIBUTION WIDTH 13.2 % (12.0-15.0); WHITE BLOOD COUNT 3.5 x10^3/uL (4.8-10.8)
[2023-04-09 13:15] LABS: ALBUMIN/GLOBULIN RATIO 1.8 (1.0-2.2); ALKALINE PHOSPHATASE 53 IU/L (42-121); ALT ALANINE AMINOTRANSFERASE 12 IU/L (10-60); AST ASPARTATE AMINOTRANSFERASE 11 IU/L (10-42); BILIRUBIN,TOTAL 0.9 mg/dL (0.2-1.0); BUN - BLOOD UREA NITROGEN 20 mg/dL (6-20); CALCIUM 9.4 mg/dL (8.5-10.3); CARBON DIOXIDE - CO2 28 mmol/L (21-32); CHLORIDE 109 mmol/L (101-111); CHOL/HDL RATIO 3.1 (<5.0); CHOLESTEROL 159 mg/dL; CREATININE 0.9 mg/dL (0.6-1.3); GFR - MDRD 82 (>89); GLUCOSE 99 mg/dL (74-104); HDL CHOLESTEROL 51 mg/dL; LDL CHOLESTEROL,CALCULATED 87 mg/dL; LDL/HDL RATIO 1.7 (<3.6); POTASSIUM 4.4 mmol/L (3.5-4.5); SODIUM 141 mmol/L (135-145); TOTAL PROTEIN 6.2 g/dL (6.4-8.9); TRIGLYCERIDES 107 mg/dL (48-352); VLDL CHOLESTEROL 21 mg/dL
== END 2023-04-09 08:41 | disposition home or self-care (01) ==
LOC: LAB.N 08:40
PROVIDERS: ATTEND Internal Medicine
DX: E78.5 Hyperlipidemia, unspecified (principal); N40.1 Benign prostatic hyperplasia with lower urinary tract symptoms; M48.061 Spinal stenosis, lumbar region without neurogenic claudication
CPT/HCPCS: 36415; 80053; 80061; 83721; 84153; 85025

== ENCOUNTER 2023-09-05 08:00 | Outpatient (CLI) | payer MEDICARE | END 2023-09-05 23:59 | disposition home or self-care (01) | LOC: LAB.N 08:00 | PROVIDERS: ATTEND Physician Assistant Medical | DX: L98.9 Disorder of the skin and subcutaneous tissue, unspecified (principal) | CPT/HCPCS: 87070; 87205 ==